=== PATIENT | female | born 1955 | race Caucasian/White ===

== ENCOUNTER 2016-08-07 07:30 | Inpatient (IN) | payer OTHER ==
[2016-07-22 11:31] VITALS: BMI 34.0
--- NOTE | 2016-08-06 16:51 | P.GSHP ---
History of Present Illness H&P Date: 08/06/16 Chief Complaint: Refractory GERD 60 yr old female S/P lap susana and EGD in 01/2016. Final path: Chronic calculous cholecystitis. Small hiatal hernia, H. pylori negative, distal reflux esophagitis. She takes PPI daily for last 15 years.Reflux symptoms not resolved and she presents to discuss about hiatal hernia repair. - Review of Systems Comment: Constitutional: No fever, chills or rigors. No weight loss or loss of appetite. HEENT: No difficulty with hearing, vision and swallowing. Lymphatic: No axillary, inguinal and cervical swellings. Endocrine: No thyroid disorders. Denies history of diabetes. Respiratory: No chest pain, shortness of breath, and cough. No hemoptysis. Cardiovascular: No palpitations, irregular HR Gastrointestinal: No change in bowel habits. No nausea or vomiting. Genitourinary: No increase in urinary frequency or urgency. No hematuria. Musculoskeletal: No back pain, joint stiffness or pain. Neurologic: No history of seizure disorder and headaches. Psychiatric: Denies depression . Has anxiety . No suicidal ideation. Hematologic: Denies any abnormal mucosal bleeding or easy bruising. Past Medical History Past Medical History: GERD/Reflux, Skin Disorder Additional Past Medical History / Comment(s): SEASONAL ALLERGIES, ECZEMA TO FACE AND ARMS OCCASIONALLY,VARICOSE VEINS,STEROID USE JUL 2016. History of Any Multi-Drug Resistant Organisms: None Reported Past Surgical History: Cholecystectomy, Tubal Ligation Additional Past Surgical History / Comment(s): COLONOSCOPY Past Anesthesia/Blood Transfusion Reactions: No Reported Reaction, Motion Sickness Additional Past Anesthesia/Blood Transfusion Reaction / Comment(s): NO HX BLOOD TRANSFUSION. Past Psychological History: Anxiety Smoking Status: Former smoker Past Alcohol Use History: Occasional Additional Past Alcohol Use History / Comment(s): QUIT SMOKING , SMOKED APPROX 10 YRS 1PPD Past Drug Use History: None Reported - Past Family History Mother Additional Family Medical History / Comment(s): ALHEIMER'S Father Additional Family Medical History / Comment(s): DAD HAD TRIPLE HEART BYPASS Medications and Allergies Home Medications Medication Instructions Recorded Confirmed Type Omeprazole [PriLOSEC] 20 mg PO AC-BRKFST 12/12/14 07/22/16 History ALPRAZolam [Xanax] 0.25 mg PO Q8H PRN 07/22/16 07/22/16 History Cetirizine HCl [Zyrtec] 10 mg PO DAILY 07/22/16 07/22/16 History Allergies Allergy/AdvReac Type Severity Reaction Status Date / Time No Known Allergies Allergy Verified 07/22/16 11:21 Surgical - Exam Patient is a 60-year-old female. Constitutional: General Appearance: healthy-appearing, well-nourished, and well- developed. Level of Distress: NAD. Ambulation: ambulating normally. Psychiatric: Insight: good judgement. Orientation: to time, place, and person. Head: Head: normocephalic and atraumatic. Eyes: Lids and Conjunctivae: no discharge or pallor and non-injected. Sclerae: non-icteric. ENMT: Oropharynx: moist mucous membranes. Abdomen: Bowel Sounds: normal. Inspection and Palpation: no tenderness or guarding and soft and non-distended. Musculoskeletal:: Motor Strength and Tone: normal and normal tone. Joints, Bones , and Muscles: normal movement of all extremities. Extremities: no cyanosis or edema. Neurologic: Gait and Station: normal gait and station. Cranial Nerves: grossly intact. Assessment and Plan (1) Hiatal hernia with GERD Status: Acute (2) Hiatal hernia with gastroesophageal reflux disease and esophagitis Status: Acute Plan: 1. Hiatal hernia and refractory GERD 2. Obesity BMI 39.9 3. Informed consent obtained from the patient after explaining the risks, benefits and potential complications including bleeding, infection, pneumothorax , dysphagia, vagus nerve injury and she elected to undergo robotic/laparoscopic hiatal hernia repair with possible mesh and Yogi fundoplication with intraoperative EGD. 4. Bariatric preop two-week diet prior to surgey 5. Postoperative course explained including diet restriction and postop diet plan. No heavy lifting more than 10 pounds for 6 weeks post surgery 1. Gastro-esophageal reflux disease with esophagitis K21.0: Gastro-esophageal reflux disease with esophagitis 2. Body mass index 30+ - obesity Z68.39: Body mass index (BMI) 39.0-39.9, adult 3. Generalized anxiety disorder F41.1: Generalized anxiety disorder
[~2016-08-07 07:30] MED LIST: CHLORHEXIDINE GLUCONATE 15 ML CUP MUCOUS MEM ONE; DEXAMETHASONE SOD PHOSPHATE 10 MG/ML 1 ML VIAL IV ONE; HEPARIN SODIUM,PORCINE 5,000 UNIT/ML 1 ML VIAL SQ ONE; HYDROmorphone 1 MG/ML 1 ML SYRINGE IVP PRN; MIDAZOLAM 2 MG/2 ML VIAL IV PRN; ONDANSETRON 4 MG/2 ML VIAL IVP ONE; SCOPOLAMINE 1.5MG/72HR PATCH TRANSDERM ONE
[2016-08-07] MEDS ORDERED: LIDOCAINE 1% 20 ML VIAL (10MG/ML) FOR IV START INTRADERMA ONE (09:21)
[2016-08-07] MEDS: LACTATED RINGERS 1,000 ML IV SCH ×2 (09:23→09:36)
[2016-08-07 09:26] LABS: Glucose,Whole Blood 79 mg/dL (75-99)
[2016-08-07 09:53] LABS: Basophils % (A) 1 %; CH 31.4; CHCM 33.2; Eosinophils # (A) 0.1 k/uL (0-0.7); Eosinophils % (A) 2 %; HCT 46.8 % (34.0-46.0); HDW 2.36; Luc # (Auto) 0.11; Luc % (Auto) 2; Lymphocytes # (A) 1.5 k/uL (1.0-4.8); Lymphocytes % (A) 29 %; MCH 30.4 pg (25.0-35.0); MCV 95.1 fL (80.0-100.0); Mean Platelet Volume 8.1; Monocytes # (A) 0.4 k/uL (0-1.0); Monocytes % (A) 8 %; Neutrophils # (A) 3.2 k/uL (1.3-7.7); Neutrophils % (A) 59 %; RBC 4.92 m/uL (3.80-5.40); RDW 13.1 % (11.5-15.5); WBC 5.4 k/uL (3.8-10.6); WBC (Perox) 5.32
[2016-08-07] MEDS ORDERED: HEPARIN SODIUM,PORCINE 5,000 UNIT/ML 1 ML VIAL SQ ONE (10:00)
[2016-08-07] MEDS ORDERED: PANTOPRAZOLE 40 MG/10 ML VIAL IV ONE (10:00)
[2016-08-07] MEDS ORDERED: SUCCINYLCHOLINE CHLORIDE 100 MG/5 ML SYR IV ONE (10:27)
[2016-08-07] MEDS ORDERED: AMPICILLIN-SULBACTAM 3 GM VIAL ONE (10:27)
[2016-08-07] MEDS ORDERED: LACTATED RINGERS 1,000 ML BAG IV ONE (10:27)
[2016-08-07] MEDS ORDERED: GLYCOPYRROLATE 0.2 MG/ML 2 ML VIAL ONE (10:27)
[2016-08-07] MEDS ORDERED: SODIUM CHLORIDE 0.9% 100 ML BAG ONE (10:27)
[2016-08-07] MEDS ORDERED: HYDROmorphone (PF) 1 MG/ML ONE (10:27)
[2016-08-07] MEDS ORDERED: PHENYLEPHRINE-0.9% NACL SYG 1 MG/10 ML SYRINGE ONE (10:27)
[2016-08-07] MEDS ORDERED: MIDAZOLAM 2 MG/2 ML VIAL ONE (10:27)
[2016-08-07] MEDS ORDERED: PROPOFOL 10 MG/ML 20 ML VIAL IV ONE (10:27)
[2016-08-07] MEDS ORDERED: ROCURONIUM BROMIDE 10 MG/ML 10 ML VIAL IV ONE (10:27)
[2016-08-07] MEDS ORDERED: fentaNYL (PF) 50 MCG/ML 2 ML AMP ONE (10:27)
[2016-08-07] MEDS ORDERED: NEOSTIGMINE 1 MG/ML 10 ML VIAL ONE (10:27)
[2016-08-07] MEDS: AMPICILLIN-SULBACTAM 3 GM in SODIUM CHLORIDE 0.9% 100 ML IVPB ONE ×2 (11:02→18:33)
[2016-08-07] MEDS ORDERED: BUPIVACAIN-EPI 0.25%-1:200,000 30 ML VIAL SQ ONE (12:04)
[2016-08-07] MEDS: LACTATED RINGERS 1,000 ML IV ONE (13:58)
[2016-08-07] MEDS ORDERED: HYOSCYAMINE ORAL DROPS 1.875 MG/15 ML BOTTLE PO PRN (15:04)
[2016-08-07] MEDS ORDERED: NALOXONE 0.4 MG/ML 1 ML VIAL IV PRN (15:04)
[2016-08-07] MEDS ORDERED: diphenhydrAMINE 50 MG/ML 1 ML VIAL IVP PRN (15:04)
[2016-08-07] MEDS ORDERED: ONDANSETRON 4 MG/2 ML VIAL IVP PRN (15:04)
--- NOTE | 2016-08-07 15:12 | P.OP ---
Date of Procedure: 08/07/16 Preoperative Diagnosis: Hiatal hernia Refractory gastroesophageal reflux disease Obesity BMI 34 Postoperative Diagnosis: Same Procedure(s) Performed: Robotic-assisted laparoscopic Yogi fundoplication and hiatal hernia repair with mesh Implants: Veitas mesh 6x8 cm (biological mesh) Anesthesia: THEO, local Surgeon: Nelia Mata Estimated Blood Loss (ml): 20 IV fluids (ml): 1,200 Urine output (ml): 200 Pathology: none sent Condition: other (ASA 3) Disposition: PACU Indications for Procedure: 60 years old female presents with refractory gastroesophageal reflux disease. EGD showed hiatal hernia and distal esophagitis. Informed consent obtained. She elected to undergo robotic-assisted laparoscopic hiatal hernia repair with possible mesh and Yogi fundoplication. The risks, benefits and potential complications including bleeding, infection, inadvertent pneumothorax were discussed with the patient and she elected to undergo the procedure. Operative Findings: 6 cm hiatal hernia defect which was closed primarily and reinforced with 6 x 8 cm Veritas mesh 360 Yogi fundoplication over 54-[place] Bougie Description of Procedure: The patient was brought to the operating room and placed in supine position. General anesthesia with endotracheal intubation was performed as per anesthesia team. A Rogers catheter was inserted under sterile aseptic precautions. 2 secure straps were placed. The abdomen was prepped and draped using ChloraPrep and sterile dressings were applied followed by an Ioban dressing. A 5 mm skin incision was made in left anterior axillary line and a Veress needle was inserted. Proper position was confirmed by aspiration and saline meniscus test. Pneumoperitoneum was insufflated to a pressure of 15 mm of Hg. Using 5 mm 30 laparoscope, the peritoneal cavity was entered under direct vision using the Optiview technique. A 12 mm trocar was placed in the supraumbilical location, another 12 mm in the right lower quadrant for the bacteriology research assistant port. The robotic 8 mm trocar was placed in the right upper quadrant into 8 mm trochars were placed in the left upper quadrant The patient was placed in reverse Trendelenburg position. A vaibhav flex liver retractor was introduced in the 5mm epigastric port to elevate the left lobe of the liver and expose the hiatus. The da Trini robot was appropriately docked. Patient was placed in reverse Trendelenburg. 30 down camera was used for visualization. Hiatal/paraesophageal hernia was noted with 20% of the stomach in the thoracic cavity. The lesser omentum was opened with vessel sealer. The incision was extended over the hiatus to the left of the elio. The right elio was identified and cleared of its investing tissue, and the dissection was then carried over the arch of the crura. The left elio was similarly dissected and the phrenoesophageal ligament divided. The vagus nerves were identified and protected. The esophagus was gently elevated with a closed grasper and the dissection progressed underneath the esophagus until it was fully mobilized. The hernia sac extended up to the chest and was fully mobilized and resected. The gastroepiploic vessels were ligated along the greater curvature of stomach. Care was taken not to injure spleen while dividing the short gastric vessels with Vessel sealer device. The stomach was completely mobilized and adequate length was obtained in the esophagus allowing at least 3 cm of intra abdominal esophagus. The hernia defect measures 5 x 5 cm. 3 figure of 8 sutures of 2-0 Ethibond were placed to close the hiatal defect posteriorly without causing undue narrowing of the esophagus. A Veritas 6 x 8 cm mesh was cut in Keyhole fashion. The mesh was positioned on the esophagus with both limbs on either side of the esophagus but without enroaching it. The mesh was secured to the diaphragm using 2-0 Ethibond. A 54-[place] bougie was passed per orally into the esophagus and the stomach by TRAVELING FREIGHT AGENT An angled grasper was passed behind the esophagus and the fundus grasped and pulled behind the esophagus. It passed easily and was easily approximated without tension to the remaining fundus, creating a 360 floppy wrap around the distal esophagus. The wrap was sutured to itself with 3 interrupted sutures of 2-0 Ethibond. The top most suture included a partial thickness bite of the esophagus to anchor the wrap. The liver retractor was removed. The 12 mm trocar sites were closed with two transfascial sutures of 0 Vicryl. Pneumoperitoneum was evacuated and all trocar sites were examined. No evidence of bleeding. The skin incision were closed with 4-0 Monocryl followed by Dermabond skin glue. Sponge, instrument and needle count were correct x 2. Patient tolerated the procedure well and was taken to post anesthesia care unit in stable condition
[2016-08-07] MEDS: HYDROmorphone 1 MG/ML 1 ML SYRINGE IVP PRN ×2 (16:56→22:18)
[2016-08-07] MEDS: ALBUTEROL NEBULIZED 2.5 MG/3 ML INHALATION SCH ×2 (17:17→20:46)
[2016-08-07] MEDS: 0.9% NACL WITH KCL 20 MEQ/L 1,000 ML IV SCH (17:21)
[2016-08-07] MEDS: KETOROLAC 30 MG/ML 1 ML VIAL IVP SCH (18:34)
[2016-08-08] MEDS: LACTATED RINGERS 1,000 ML IV ONE (00:57)
[2016-08-08] MEDS: 0.9% NACL WITH KCL 20 MEQ/L 1,000 ML IV SCH ×3 (01:08→16:44)
[2016-08-08] MEDS: HYDROmorphone 1 MG/ML 1 ML SYRINGE IVP PRN ×2 (03:46→11:14)
[2016-08-08] MEDS: KETOROLAC 30 MG/ML 1 ML VIAL IVP SCH ×4 (04:14→19:03)
[2016-08-08 06:54] LABS: Basophils # (A) 0.1 k/uL (0-0.2); Basophils % (A) 1 %; CH 31.3; CHCM 32.3; Eosinophils % (A) 0 %; HCT 41.3 % (34.0-46.0); HDW 2.36; HGB 12.6 gm/dL (11.4-16.0); Luc % (Auto) 1; Lymphocytes # (A) 0.9 k/uL (1.0-4.8); Lymphocytes % (A) 9 %; MCH 29.7 pg (25.0-35.0); MCHC 30.5 g/dL (31.0-37.0); MCV 97.4 fL (80.0-100.0); Mean Platelet Volume 7.6; Monocytes # (A) 0.7 k/uL (0-1.0); Monocytes % (A) 7 %; Neutrophils # (A) 8.3 k/uL (1.3-7.7); Neutrophils % (A) 83 %; RBC 4.23 m/uL (3.80-5.40); RDW 13.1 % (11.5-15.5); WBC 10.1 k/uL (3.8-10.6); WBC (Perox) 10.09
[2016-08-08 07:05] LABS: Anion Gap 9 mmol/L; Blood Urea Nitrogen 9 mg/dL (7-17); Calcium 9.1 mg/dL (8.4-10.2); Carbon Dioxide 24 mmol/L (22-30); Chloride 110 mmol/L (98-107); Magnesium 1.9 mg/dL (1.6-2.3); Non-African American GFR(MDRD) >60 (>60 ml/min/1.73 sqM); Phosphorous 3.6 mg/dL (2.5-4.5); Potassium 4.4 mmol/L (3.5-5.1); Sodium 143 mmol/L (137-145)
[2016-08-08] MEDS: ALBUTEROL NEBULIZED 2.5 MG/3 ML INHALATION SCH ×4 (08:57→21:03)
--- NOTE | 2016-08-08 10:37 | FL ---
EXAMINATION TYPE: FL UGI DATE OF EXAM: 08/08/2016 10:29 AM LIMITED UGI-ESOPHAGRAM: CLINICAL HISTORY: Hiatal hernia and reflux symptoms, Tesfaye fundoplication surgery performed one day earlier TECHNIQUE: Limited esophagram is performed utilizing 30 oz of Omnipaque 350. A total of approximatel y 45 seconds of fluoroscopic time was utilized during procedure. FINDINGS: The patient swallowed contrast without difficulty or delay. Esophageal peristalsis and mo tility are within normal limits. There is mild delay in flow of contrast along the diaphragmatic hiat us into the stomach, there is no evidence of contrast extravasation to suggest leak. Patient remains asymptomatic. No persistent hiatal hernia is seen. Cholecystectomy clips are noted. IMPRESSION: No evidence of leak or significant obstruction status post Tesfaye fundoplication surgery yesterday.
[2016-08-08] MEDS ORDERED: HYDROcodone/APAP 15 ML SOLUTION PO PRN (11:18)
[2016-08-08] MEDS: ALPRAZolam 0.25 MG TAB PO SCH (13:00)
[2016-08-08] MEDS: PANTOPRAZOLE 40 MG/10 ML VIAL IV SCH (13:01)
[2016-08-08] MEDS: HYDROcodone/APAP 15 ML SOLUTION PO PRN ×2 (13:34→22:02)
[2016-08-08] MEDS ORDERED: ACETAMINOPHEN ORAL SUSP 160 MG/5 ML CUP PO PRN (13:57)
--- NOTE | 2016-08-08 14:13 | P.PN ---
Subjective Principal diagnosis: S/p Hiatal hernia repair Patient is postop day 1 status post hiatal hernia repair with Yogi fundoplication. Patient complaining of a severe headache which is possibly from caffeine withdrawal. There is some burping. No true nausea. She has passed some flatus not had a bowel movement abdominal pain is well-controlled with the pain medication. Primary concern has been the headache. She already had her upper GI which has been unremarkable. She is tolerating some liquids which are going down easily in and not getting stuck. Objective - Vital Signs Vital signs: Vital Signs Temp 97 F L 08/08/16 08:20 Pulse 69 08/08/16 08:20 Resp 20 08/08/16 08:20 BP 127/69 08/08/16 08:20 Pulse Ox 92 L 08/08/16 08:20 Intake & Output 08/07/16 08/08/16 08/08/16 18:59 06:59 18:59 Intake Total 2800 240 Output Total 220 420 Balance 2580 -180 Weight 89.811 kg 89.811 kg Intake: IV 2800 Oral 240 Output: Urine 200 420 Estimated Blood Loss 20 Other: # Voids 1 - Constitutional General appearance: Present: mild distress - EENT Eyes: Present: PERRLA - Cardiovascular Rhythm: regular - Gastrointestinal Gastrointestinal Comment(s): Incisions are clean and dry. There are no sign of active infection. They're appropriately tender. General gastrointestinal: Present: soft - Labs CBC & Chem 7: 08/08/16 06:37 08/08/16 06:37 Labs: Abnormal Lab Results - Last 24 Hours (Table) 08/08/16 08/08/16 Range/Units 06:37 06:37 MCHC 30.5 L (31.0-37.0) g/dL Neutrophils # 8.3 H (1.3-7.7) k/uL Lymphocytes # 0.9 L (1.0-4.8) k/uL Chloride 110 H (98-107) mmol/L Assessment and Plan (1) Hiatal hernia with GERD Narrative/Plan: Patient is a 60-year-old lady postop day 1 with hiatal hernia repair and fundoplication. She is tolerating liquids. Her study looks fine. She may be advanced according to the Yogi diet. At this point I will prescribe liquid Tylenol to help with the headache.. She may have black coffee. Status: Acute
[2016-08-08] MEDS: SIMETHICONE 40 MG/0.6 ML DROPS 2,000 MG/30 ML BOTTLE PO PRN (18:00)
[2016-08-09] MEDS: 0.9% NACL WITH KCL 20 MEQ/L 1,000 ML IV SCH ×2 (00:27→08:04)
[2016-08-09] MEDS: KETOROLAC 30 MG/ML 1 ML VIAL IVP SCH ×3 (00:28→12:26)
[2016-08-09] MEDS ORDERED: BISACODYL 5 MG TABLET.DR PO PRN (08:00)
[2016-08-09] MEDS: ALBUTEROL NEBULIZED 2.5 MG/3 ML INHALATION SCH ×4 (09:11→20:28)
[2016-08-09] MEDS: PANTOPRAZOLE 40 MG/10 ML VIAL IV SCH (09:43)
[2016-08-09] MEDS: ALPRAZolam 0.25 MG TAB PO SCH ×3 (10:11→21:17)
--- NOTE | 2016-08-09 10:53 | XR ---
EXAMINATION TYPE: XR chest 2V DATE OF EXAM: 08/09/2016 10:46 AM COMPARISON: NONE HISTORY: Shortness of breath after Tesfaye fundoplication surgery 2 days ago. TECHNIQUE: Frontal and lateral views of the chest are obtained. FINDINGS: There are small to moderate size bilateral pleural effusions and associated bibasilar atel ectasis and/or infiltrate. Upper lungs are clear without pneumothorax. The cardiac silhouette size is mildly enlarged. The osseous structures are intact. There is contrast material seen in colon from recent Limited upper GI study. Scattered air-fluid levels are present. Cholecystectomy clips are note d. IMPRESSION: Consider CHF exacerbation as there is mild cardiomegaly with suspected small to moderate -sized bilateral pleural effusions. Clinical correlation advised. Suspect postoperative or postproced ural ileus in the visualized abdomen.
[2016-08-09] MEDS ORDERED: RX INFO: IV CONTRAST WAS GIVEN 1 EACH MISC MISCELLANE PRN (11:08)
[2016-08-09 11:26] LABS: Basophils % (A) 0 %; CH 30.9; CHCM 32.2; Eosinophils % (A) 0 %; HCT 41.7 % (34.0-46.0); HDW 2.31; HGB 13.3 gm/dL (11.4-16.0); Luc # (Auto) 0.11; Luc % (Auto) 1; Lymphocytes # (A) 1.3 k/uL (1.0-4.8); Lymphocytes % (A) 14 %; MCH 30.8 pg (25.0-35.0); MCHC 31.9 g/dL (31.0-37.0); MCV 96.5 fL (80.0-100.0); Monocytes # (A) 0.4 k/uL (0-1.0); Monocytes % (A) 5 %; Neutrophils # (A) 6.8 k/uL (1.3-7.7); Neutrophils % (A) 79 %; RBC 4.32 m/uL (3.80-5.40); RDW 13.5 % (11.5-15.5); WBC 8.7 k/uL (3.8-10.6); WBC (Perox) 9.23
--- NOTE | 2016-08-09 11:38 | US ---
EXAMINATION TYPE: US venous doppler duplex LE BI DATE OF EXAM: 08/09/2016 11:10 AM COMPARISON: NONE CLINICAL HISTORY: chest pressure per patient; day 3 post Hiatal Hernia repair. SIDE PERFORMED: Bilateral VESSELS IMAGED: Common Femoral Vein Deep Femoral Vein Greater Saphenous Vein * Femoral Vein Popliteal Vein Proximal Calf Veins (* superficial vessels) TECHNOLOGIST IMPRESSION: Right Leg: Negative for DVT Left Leg: Negative for DVT Satisfactory color flow, phasicity, and compressibility is documented bilaterally at the above levels . IMPRESSION: No ultrasound evidence for acute DVT in either lower extremity.
[2016-08-09 11:40] LABS: ALT 166 U/L (9-52); AST 70 U/L (14-36); Alkaline Phosphatase 81 U/L (38-126); Anion Gap 9 mmol/L; Blood Urea Nitrogen 8 mg/dL (7-17); Calcium 9.4 mg/dL (8.4-10.2); Carbon Dioxide 24 mmol/L (22-30); Chloride 109 mmol/L (98-107); Glucose 109 mg/dL (74-99); Non-African American GFR(MDRD) >60 (>60 ml/min/1.73 sqM); Potassium 4.5 mmol/L (3.5-5.1); Sodium 142 mmol/L (137-145); Total Bilirubin 0.4 mg/dL (0.2-1.3)
--- NOTE | 2016-08-09 11:42 | P.PN ---
Subjective Principal diagnosis: S/p Hiatal hernia repair Patient is postop day 2 status post hiatal hernia repair with Yogi fundoplication. Patient currently can't radiology portion of her workup for her shortness of breath. Objective - Vital Signs Vital signs: Vital Signs Temp 97.3 F L 08/09/16 08:09 Pulse 78 08/09/16 10:21 Resp 20 08/09/16 08:09 BP 155/78 08/09/16 08:09 Pulse Ox 92 L 08/09/16 10:13 Intake & Output 08/08/16 08/09/16 08/09/16 18:59 06:59 18:59 Intake Total 100 150 60 Output Total 550 200 Balance 100 -400 -140 Weight 89.811 kg Intake: Oral 100 150 60 Output: Urine 550 200 Other: Voiding Method Toilet # Voids 2 - Labs CBC & Chem 7: 08/09/16 10:29 08/08/16 06:37 Labs: Abnormal Lab Results - Last 24 Hours (Table) 08/09/16 Range/Units 10:29 D-Dimer 2.16 H (<0.60) mg/L FEU Assessment and Plan (1) Hiatal hernia with GERD Narrative/Plan: Patient was not examined the patient was away. I was reported by the nurse that she was requiring nasal cannula nasal Reduction with shortness of breath walking up to the toilet falling down into the 80s. I have started her off on Lovenox preliminary results in terms of DVT study was negative for bilateral lower extremity DVT. Erin shows pleural effusion CT angios the chest has been ordered to rule out pulmonary embolism. Pulmonology is also been consulted due to her shortness of breath. Further recommendations to follow once the patient returns and is evaluated on the floor and the results are available for the studies. Status: Acute
[2016-08-09] MEDS: ENOXAPARIN 40 MG/0.4 ML SYRINGE SQ SCH (11:52)
--- NOTE | 2016-08-09 12:08 | CT ---
EXAMINATION TYPE: CT chest angio for PE DATE OF EXAM: 08/09/2016 11:50 AM COMPARISON: Chest x-ray from earlier today HISTORY: SOB, hx of hiatal hernia with surgery [address] DLP: 348.4 mGycm Automated exposure control for dose reduction was used. CONTRAST: CTA Chest for pulmonary embolism performed with with IV Contrast, patient injected with 100mL, wasted 42mL mL of Omnipaque 350. MIP images are created on CT scanner and reviewed. FINDINGS: LUNGS: Exam is suboptimal as is degraded by respiratory motion artifact. Small bilateral pleural effu sions are confirmed. There is associated bibasilar atelectasis and/or consolidation, former is favore d. No pneumothorax is seen bilaterally. Tracheobronchial tree is patent. MEDIASTINUM: There is satisfactory enhancement of the pulmonary artery and its branches, there is no CT evidence for pulmonary embolism. There are no greater than 1 cm hilar or mediastinal lymph nodes. There is small pericardial effusion seen.Heart size is mildly enlarged. Coronary artery calcificatio n is present. Small amount of pneumomediastinum remains present. OTHER: Cholecystectomy clips are noted. Contrast from recent upper GI causes streak artifact in the abdomen. Tiny amount of pneumoperitoneum is still present. Subcutaneous air anterior abdominal wall i s noted. Additional subcutaneous emphysema is seen supraclavicular level anterior upper chest. All ai r is presumed postsurgical given patient history of surgery 2 days earlier. Some multilevel spurring in the spine is present. Exaggerated thoracic kyphosis is noted. No persistent hiatal hernia is seen. There is suggestion of abnormal outpouching or diverticulum from the posterior gastric wall just bel ow diaphragm. IMPRESSION: 1. No CT evidence for pulmonary embolism. 2. Consider CHF exacerbation as there is cardiomegaly with small bilateral pleural effusions. Clinica l correlation advised.
[2016-08-09] MEDS ORDERED: FUROSEMIDE 10 MG/ML 2 ML VIAL IV ONE (12:21)
--- NOTE | 2016-08-09 12:29 | P.PN ---
Subjective Principal diagnosis: S/P robotic lap Yogi POD#2 S/P robotoc assist lap Yogi fundoplication. Poor oral intake secondary to headaches , now resolved. Poor IS use <500 cc. Shortness of breath. CBC, CMP, troponin normal. Elevated AST, ALt from liver retraction- normal expected Vitals stable. Diminished basal lung sounds. CXR- B/L plural effusion , atelectasis CT chest- No PE, atelectasis, small bilateral pleural effusion Elevated D dimer - expected post op change Patient reassured. Abdominal binder. Aggressive IS use. Xanax for anxiety. Lasix 20 mg IVX1. Increase oral intake- Clear liquids. Small sips . D/W Dr. Beckwith and Dr. Monsalve . Objective - Vital Signs Vital signs: Vital Signs Temp 97.3 F L 08/09/16 08:09 Pulse 80 08/09/16 12:00 Resp 20 08/09/16 12:00 BP 155/78 08/09/16 08:09 Pulse Ox 94 L 08/09/16 12:00 Intake & Output 08/08/16 08/09/16 08/09/16 18:59 06:59 18:59 Intake Total 100 150 60 Output Total 550 200 Balance 100 -400 -140 Weight 89.811 kg Intake: Oral 100 150 60 Output: Urine 550 200 Other: Voiding Method Toilet # Voids 2 - Labs CBC & Chem 7: 08/09/16 10:29 08/09/16 10:29 Labs: Abnormal Lab Results - Last 24 Hours (Table) 08/09/16 08/09/16 Range/Units 10:29 10:29 D-Dimer 2.16 H (<0.60) mg/L FEU Chloride 109 H (98-107) mmol/L Glucose 109 H (74-99) mg/dL AST 70 H (14-36) U/L ALT 166 H (9-52) U/L Total Protein 6.0 L (6.3-8.2) g/dL Assessment and Plan (1) Hiatal hernia with GERD Status: Acute (2) Hiatal hernia with gastroesophageal reflux disease and esophagitis Status: Acute
--- NOTE | 2016-08-09 13:36 | P.CNPUL ---
History of Present Illness Consult date: 08/09/16 Reason for consult: dyspnea, hypoxemia, abnormal CXR/CT Chief complaint: Shortness of breath worse on exertion History of present illness: This is a 60-year-old female patient who had a laparoscopic Yogi fundoplication performed on Wednesday of this past week. He was done by Dr. khan. The patient did well Wednesday afternoon and evening and on Wednesday. More recently she's been complaining of increasing shortness of breath worse with exertion. She does have a cough. Nonproductive. No fever no chills. She was chest x-ray which suggested heart failure. Computed tomography scan of the chest was done to rule out PE. PE was ruled out. Additional evidence of what appears to be some mild fluid overload with bilateral pleural effusions. The patient has no prior history of any lung issues or cardiac issues. She does have a history of hiatal hernia. She has taken a proton pump inhibitor for a number of years. Her other medical history is unremarkable other than for [place] mild ALLERGIES. Surgical history includes tubal ligation and cholecystectomy. Did smoke in the past for about 20 or so years but quit many years back. Review of Systems A 12 point review of system is positive for shortness of breath worse on exertion and a nonproductive cough. She also had an episode of chest pain right in the center of her chest. No history of cardiac disease. S1 necessary this necessitated the computed tomography scan Past Medical History Past Medical History: GERD/Reflux, Skin Disorder Additional Past Medical History / Comment(s): SEASONAL ALLERGIES, ECZEMA TO FACE AND ARMS OCCASIONALLY,VARICOSE VEINS,STEROID USE JUL 2016. History of Any Multi-Drug Resistant Organisms: None Reported Past Surgical History: Cholecystectomy, Tubal Ligation Additional Past Surgical History / Comment(s): COLONOSCOPY Past Anesthesia/Blood Transfusion Reactions: No Reported Reaction, Motion Sickness Additional Past Anesthesia/Blood Transfusion Reaction / Comment(s): NO HX BLOOD TRANSFUSION. Past Psychological History: Anxiety Smoking Status: Former smoker Past Alcohol Use History: Occasional Additional Past Alcohol Use History / Comment(s): QUIT SMOKING , SMOKED APPROX 10 YRS 1PPD Past Drug Use History: None Reported - Past Family History Mother Additional Family Medical History / Comment(s): ALHEIMER'S Father Additional Family Medical History / Comment(s): DAD HAD TRIPLE HEART BYPASS Medications and Allergies Home Medications Medication Instructions Recorded Confirmed Type Omeprazole [PriLOSEC] 20 mg PO AC-BRKFST 12/12/14 08/07/16 History ALPRAZolam [Xanax] 0.25 mg PO Q8H PRN 07/22/16 08/07/16 History Cetirizine HCl [Zyrtec] 10 mg PO DAILY 07/22/16 08/07/16 History Allergies Allergy/AdvReac Type Severity Reaction Status Date / Time dog dander AdvReac Rash/Hives Verified 08/08/16 06:35 grass pollen AdvReac Rash/Hives Verified 08/08/16 06:35 Physical Exam Osteopathic Statement: *. No significant issues noted on an osteopathic structural exam other than those noted in the History and Physical/Consult. Vitals: Vital Signs Temp Pulse Pulse Resp BP Pulse Ox 08/09/16 12:00 80 20 94 L 08/09/16 10:21 78 08/09/16 10:13 92 L 08/09/16 10:10 76 08/09/16 08:09 97.3 F L 76 20 155/78 94 L 08/09/16 05:00 97.1 F L 66 20 142/71 92 L 08/09/16 00:55 97.6 F 74 24 156/72 91 L 08/09/16 00:00 20 08/08/16 21:35 97.8 F 67 20 144/60 08/08/16 20:00 20 08/08/16 16:45 97.3 F L 93 19 138/70 93 L 08/08/16 16:00 19 08/08/16 15:04 94 L Intake and Output 08/08/16 08/09/16 08/09/16 22:59 06:59 14:59 Intake Total 50 100 60 Output Total 200 350 475 Balance -150 -250 -415 Intake: Oral 50 100 60 Output: Urine 200 350 475 Other: Voiding Method Toilet No acute distress, oriented 3. HEENT examination is grossly unremarkable. Mucous membranes are moist. There are no oral lesions. Neck supple. Full range of motion. No adenopathy. Cardiovascular examination reveals regular rhythm rate. S1-S2 normal. No S3- S4 or murmur. Lungs reveal diminished breath sounds particularly at the bases. Some crackles at the bases. Some dullness at the bases. No rhonchi. Abdomen soft bowel sounds are heard. Extremities are intact. There is no edema. Results - Laboratory Findings CBC and BMP: 08/09/16 10:29 08/09/16 10:29 PT/INR, D-dimer D-Dimer 2.16 mg/L FEU (<0.60) H 08/09/16 10:29 Abnormal lab findings: Abnormal Labs 08/07/16 08/08/16 08/08/16 09:26 06:37 06:37 Hct 46.8 H MCHC 30.5 L Neutrophils # 8.3 H Lymphocytes # 0.9 L D-Dimer Chloride 110 H Glucose AST ALT Total Protein 08/09/16 08/09/16 10:29 10:29 Hct MCHC Neutrophils # Lymphocytes # D-Dimer 2.16 H Chloride 109 H Glucose 109 H AST 70 H ALT 166 H Total Protein 6.0 L - Diagnostic Findings Chest x-ray: image reviewed CT scan - chest: image reviewed (Both CAT scan and chest x-ray show evidence of bilateral pleural effusion. The pattern that were sitting is most consistent with fluid overload/heart failure. There is no evidence of pulmonary embolism on the computed tomography scan) Assessment and Plan (1) CHF (congestive heart failure) Status: Acute (2) Pleural effusion in other conditions classified elsewhere Status: Acute (3) Chest pain Status: Acute (4) Hiatal hernia with GERD Status: Acute (5) Hiatal hernia with gastroesophageal reflux disease and esophagitis Status: Acute Plan: Plan for August 2016 I spoke to the surgeon about this patient. I recommended the incentive spirometer every hour while awake. Also read recommended some breathing treatments. In addition, she can get Lasix 40 mg IV push and also I've ordered to be done. Additional recommendations suggestions are forthcoming. Time with Patient: Greater than 30
[2016-08-09] MEDS: SIMETHICONE 40 MG/0.6 ML DROPS 2,000 MG/30 ML BOTTLE PO PRN (14:49)
[2016-08-09] MEDS: HYDROcodone/APAP 15 ML SOLUTION PO PRN (15:18)
[2016-08-10] MEDS: HYDROcodone/APAP 15 ML SOLUTION PO PRN (00:07)
[2016-08-10] MEDS: 0.9% NACL WITH KCL 20 MEQ/L 1,000 ML IV SCH (04:06)
[2016-08-10] MEDS: ENOXAPARIN 40 MG/0.4 ML SYRINGE SQ SCH (08:19)
[2016-08-10] MEDS ORDERED: PANTOPRAZOLE 40 MG TABLET PO SCH (09:00)
[2016-08-10 09:15] VITALS: RESP 20
[2016-08-10] MEDS ORDERED: DEXAMETHASONE SOD PHOSPHATE 10 MG/ML 1 ML VIAL IV STA (09:42)
[2016-08-10] MEDS ORDERED: FUROSEMIDE 10 MG/ML 2 ML VIAL IV ONE (09:44)
[2016-08-10] MEDS: ALBUTEROL NEBULIZED 2.5 MG/3 ML INHALATION SCH ×3 (09:46→16:54)
[2016-08-10] MEDS ORDERED: SIMETHICONE 80 MG CHEWABLE PO PRN (09:52)
--- NOTE | 2016-08-10 10:36 | P.PN ---
Subjective A 60-year-old female being seen this morning sitting up on the edge of the bed. With coaching patient can achieve 1000. This morning the patient is stating feeling of bloating sensation not able to have a bowel movement states is passing gas. On room air the sats this morning are documented 93%. Has remained afebrile. Patient is status post robotic-assist lap Omid fundoplication August [address] Mata. Over the course of hospitalization the patient developed episodes of increased shortness of breath worse with exertion. CAT scan of the chest was done it did rule out for pulmonary emboli. The CAT scan did show evidence of mild fluid overload with bilateral pleural effusion. Patient has been seen by pulmonology service. Objective - Vital Signs Vital signs: Vital Signs Temp 98.5 F 08/10/16 08:05 Pulse 68 08/10/16 08:05 Resp 20 08/10/16 08:05 BP 156/74 08/10/16 08:05 Pulse Ox 93 L 08/10/16 08:05 Intake & Output 08/09/16 08/10/16 08/10/16 18:59 06:59 18:59 Intake Total 620 1000 200 Output Total 1775 Balance -1155 1000 200 Intake: Intake, IV Titration 1000 Amount 0.9% NaCl with KCl 20 Meq 1000 /l 1,000 ml @ 50 mls/hr IV .Q20H TOÑA Rx#: [id number] Oral 620 200 Output: Urine 1775 Other: # Voids 2 1 - Exam Physical exam 60-year-old female sitting up on the edge of the bed clear liquid diet taking with no difficulty. Currently is denying a headache when questioning. And states breathing feels improved. Does report having a bloating sensation Lungs posterior diminished at the bases otherwise adequate air movement. Is able to use the incentive spirometer with coaching can achieve 1000 no cough noted no conversational dyspnea noted Heart S1-S2 audible regular Abdomen surgical site no redness at the site soft nontender a few active bowel tones noted Extremities no evidence of calf tenderness or edema - Labs CBC & Chem 7: 08/09/16 10:29 08/09/16 10:29 Labs: Abnormal Lab Results - Last 24 Hours (Table) 08/09/16 08/09/16 Range/Units 10:29 10:29 D-Dimer 2.16 H (<0.60) mg/L FEU Chloride 109 H (98-107) mmol/L Glucose 109 H (74-99) mg/dL AST 70 H (14-36) U/L ALT 166 H (9-52) U/L Total Protein 6.0 L (6.3-8.2) g/dL Assessment and Plan Plan: Impression Status post robotic assist lap omid fundoplication done 08/07/2015 Elevated d-dimer expected postop change with CAT scan of the chest no evidence of a pulmonary emboli Anxiety disorder nonspecified CAT scan of the chest bilateral pleural effusion atelectasis suspect mild volume overload History of chronic reflux esophagitis hiatal hernia with refractory GERD Obesity BMI 34 Hiatal hernia with gastroesophageal reflux disease with esophagitis acute Plan Check echocardiogram evaluate the LV functionin no acute findings patient could be discharged home if okay with pulmonology Lasix 20 IV 1 Increase activity Increase the use of the incentive spirometer have patient use every 1 hour while awake Pain control Resume home meds as appropriate Encourage clear liquids small sips DVT and GI prophylaxis Repeat labs in the morning Follow-up on pending studies The above dictated assessment and findings were discussed with Dr. Mata Impression and the plan of care have been dictated as directed. Alem Tyler nurse practitioner acting as a scribe for dr mata
--- NOTE | 2016-08-10 11:42 | ECHOF ---
Referral Reason:lv fxn MEASUREMENTS -------- HEIGHT: 162.6 cm WEIGHT: 89.8 kg BP: RVIDd: 2.3 cm (< 3.3) IVSd: 1.0 cm (0.6 - 1.1) LVIDd: 4.2 cm (3.9 - 5.3) LVPWd: 1.0 cm (0.6 - 1.1) IVSs: 1.5 cm LVIDs: 2.3 cm LVPWs: 1.2 cm LA Diam: 3.9 cm (2.7 - 3.8) Ao Diam: 2.8 cm (2.0 - 3.7) AV Cusp: 2.0 cm (1.5 - 2.6) LA Diam: 3.9 cm (2.7 - 3.8) MV EXCURSION: 11.800 mm (> 18.000) MV EF SLOPE: 74 mm/s (70 - 150) EPSS: 0.4 cm MV E Kash: 0.77 m/s MV A Kash: 1.08 m/s MV E/A Ratio: 0.71 RAP: 5.00 mmHg RVSP: 30.57 mmHg FINDINGS -------- Sinus rhythm. This was a technically adequate study. There is mild concentric left ventricular hypertrophy. Overall left ventricular systolic function is normal with, an EF between 55 - 60 %. The right ventricle is normal in size. The left atrial size is normal. The right atrial size is normal. There is mild aortic valve sclerosis. There is no evidence of aortic regurgitation. Mild mitral annular calcification present. Mild mitral regurgitation is present. Mild tricuspid regurgitation present. Right ventricular systolic pressure is normal at < 35 mmHg. There is no evidence of pulmonary hypertension. There is no pulmonic regurgitation present. There is a trivial pericardial effusion present. CONCLUSIONS -------- 1. There is mild concentric left ventricular hypertrophy. 2. Overall left ventricular systolic function is normal with, an EF between 55 - 60 %. 3. There is mild aortic valve sclerosis. 4. Mild mitral annular calcification present. 5. Mild mitral regurgitation is present. 6. Mild tricuspid regurgitation present. 7. Right ventricular systolic pressure is normal at < 35 mmHg. 8. There is no evidence of pulmonary hypertension. 9. There is a trivial pericardial effusion present. DOCUMENT SPECIALIST: Deborah Ayala RDCS
--- NOTE | 2016-08-10 11:51 | P.PN ---
Subjective This is a 60-year-old female patient who had a laparoscopic Omid fundoplication performed on Wednesday of this past week. More recently she's been complaining of increasing shortness of breath worse with exertion. She does have a cough. Nonproductive. No fever no chills. She was chest x-ray which suggested heart failure. Computed tomography scan of the chest was done to rule out PE. PE was ruled out. Additional evidence of what appears to be some mild fluid overload with bilateral pleural effusions. On 08/20/2016, the patient is being seen in follow-up. She is doing well and she has no specific complaints. I reviewed the computed tomography scan of the chest and there is extensive atelectatic changes in the lung bases bilaterally and small bilateral pleural effusions. The patient is using incentive spirometer and the patient has a pulse ox of 93% on room air without any desaturations with activity. Echocardiogram was also done and the results are still pending for now. No nausea. No vomiting. No abdominal pain and she is swallowing well. Objective - Vital Signs Vital signs: Vital Signs Temp 98.5 F 08/10/16 08:05 Pulse 68 08/10/16 08:05 Resp 20 08/10/16 08:05 BP 156/74 08/10/16 08:05 Pulse Ox 93 L 08/10/16 08:05 Intake & Output 08/09/16 08/10/16 08/10/16 18:59 06:59 18:59 Intake Total 620 1000 200 Output Total 1775 400 Balance -1155 1000 -200 Intake: Intake, IV Titration 1000 Amount 0.9% NaCl with KCl 20 Meq 1000 /l 1,000 ml @ 50 mls/hr IV .Q20H TOÑA Rx#: [id number] Oral 620 200 Output: Urine 1775 400 Other: # Voids 2 1 - Exam The patient appeared well nourished and normally developed. Vital signs as documented. Head exam is unremarkable. No scleral icterus or corneal arcus noted. Neck is without jugular venous distension, thyromegaly, or carotid bruits. Carotid upstrokes are brisk bilaterally. Lungs are clear to auscultation and percussion. Lung sounds are diminished in lung bases bilaterally. Cardiac exam reveals the PMI to be normally sized and situated. Rhythm is regular. First and second heart sounds normal. No murmurs, rubs or gallops. Abdominal exam reveals normal bowel sounds, no masses, no organomegaly and no aortic enlargement. Abdominal surgical wounds are all intact and clean. Extremities are nonedematous and both femoral and pedal pulses are normal. - Labs CBC & Chem 7: 08/09/16 10:29 08/09/16 10:29 Labs: Abnormal Lab Results - Last 24 Hours (Table) 08/09/16 Range/Units 10:29 Chloride 109 H (98-107) mmol/L Glucose 109 H (74-99) mg/dL AST 70 H (14-36) U/L ALT 166 H (9-52) U/L Total Protein 6.0 L (6.3-8.2) g/dL Assessment and Plan Plan: Impression 1 Status post robotic assist lap omid fundoplication done 08/07/2015 2 Elevated d-dimer expected postop change with CAT scan of the chest no evidence of a pulmonary emboli 3 Anxiety disorder nonspecified 4 CAT scan of the chest bilateral pleural effusion atelectasis suspect mild volume overload 5 History of chronic reflux esophagitis 6 hiatal hernia with refractory GERD 7 Obesity BMI 34 8 Hiatal hernia with gastroesophageal reflux disease with esophagitis acute Plan This patient is doing well. Her postoperative hypoxemia is most likely related to atelectatic changes in lung bases bilaterally. I'm going to ask the patient to continue using her incentive spirometer aggressively. She ambulated approximately 200 feet today and she was able to maintain a pulse ox above 90%. As such, she does not need oxygen to go home. Be awaiting the results of the echocardiogram. If all normal, she can be discharged home today and she'll be given my information to contact me should there be any breathing issues postop.
[2016-08-10 11:53] VITALS: PULSE 86
[2016-08-10 12:03] VITALS: BP 139/75; TEMP 97.4
--- NOTE | 2016-08-10 13:38 | P.DS ---
Providers Date of admission: 08/07/16 08:54 Expected date of discharge: 08/10/16 Attending physician: Nelia Alcantara Consults: 08/09/16 11:08 Consult Physician Urgent Consulting Provider: Farhad Beckwith Consult Reason/Comments: shortness of breath Do you want consulting provider notified?: Yes Primary care physician: [facility] Course: Patient is status post robotic-assist lap Yogi fundoplication done on August [address] Alcantara. Over the course of hospitalization the patient developed episodes of increased shortness of breath worse with exertion. CAT scan of the chest was done it did rule out for pulmonary emboli. The CAT scan did show evidence of mild fluid overload with bilateral pleural effusion. Patient has been seen by pulmonology service. echocardiogram was ordered results were reviewed. Overall the left ventricular systolic function was normal EF between 55 and 60%. There was no evidence of pulmonary hypertension. there was a trivial pericardial effusion present. Mild concentric left ventricular hypertrophy . Patient was noted to be up ambulating in the medeiros stated passing gas reportedly not experiencing any abdominal pain no nausea vomiting and tolerating diet as prescribed sips of liquid pulmonology indicated the patient was appropriate proceed with a discharge home. patient's pulse ox sat on room air was 93% with activity did not have any desaturations noted. Patient was felt to be hemodynamically stable and appropriate proceed with a discharge to home Impression discharge diagnosis 1 Status post robotic assist lap yogi fundoplication done 08/07/2015 2 Elevated d-dimer expected postop change with CAT scan of the chest no evidence of a pulmonary emboli 3 Anxiety disorder nonspecified 4 CAT scan of the chest bilateral pleural effusion atelectasis suspect mild volume overload 5 History of chronic reflux esophagitis 6 hiatal hernia with refractory GERD 7 Obesity BMI 34 8 Hiatal hernia with gastroesophageal reflux disease with esophagitis acute preserved LV function EF 55 to 60% per echocardiogram 08/10/2015 The above dictated assessment and findings were discussed with dr piña. Impression and the plan of care have been dictated as directed. Alem Tyler nurse practitioner acting as a scribe for dr alcantara Plan - Discharge Summary New Discharge Prescriptions: Hydrocodone/Acetaminophen [Hycet 7.5 mg-325 mg/15 ml Soln] 15 ml PO Q4-6H #500 ml Discharge Medication List Omeprazole [PriLOSEC] 20 mg PO AC-BRKFST 12/12/14 [History] ALPRAZolam [Xanax] 0.25 mg PO Q8H PRN 07/22/16 [History] Cetirizine HCl [Zyrtec] 10 mg PO DAILY 07/22/16 [History] Hydrocodone/Acetaminophen [Hycet 7.5 mg-325 mg/15 ml Soln] 15 ml PO Q4-6H #500 ml 08/07/16 [Rx] Acetaminophen Oral Susp [Tylenol] 650 mg PO Q6H PRN #0 cup 08/10/16 [Rx] Follow up Appointment(s)/Referral(s): Nelia Alcantara MD [STAFF PHYSICIAN] - 08/18/16 Patient Instructions/Handouts: *Surgery [facility] - Scopalamine Patch Instructions Activity/Diet/Wound Care/Special Instructions: OK to shower . No soaking bath. No heavy lifting more than 10 lbs for 6 weeks post surgery. No driving while taking narcotics for pain. May use ice packs for local pain relief Follow post Yogi diet protocol. Full liquids for 2 weeks Use incentive spireometry 10 times an hour while awake Discharge Disposition: HOME SELF-CARE
[2016-08-10] MEDS: ALPRAZolam 0.25 MG TAB PO SCH ×2 (14:23)
--- NOTE | 2016-08-10 15:11 | CDI ---
In responding to this query, please exercise your independent professional judgment. The [facility] Coding Staff and Clinical Documentation Specialists appreciate your assistance in clarifying documentation, maintaining compliance with coding guidelines, accurately documenting patients condition and capturing severity of illness. The fact that a question is asked does not imply that any particular answer is desired or expected. Communication forms are a method of clarifying documentation and are not made part of the Legal Health Record. Thank you in advance for your clarification. Last Revision, October 2015 Please defer the question to business intelligence analyst. DR. Beckwith . No prior history of CHF . Unable to comment if this was acute or chronic [facility] [address] [place] [address] Documentation Clarification Form Date: 08/10/2016 3:00:00 PM From: Kalli Brower RN, CCDS Admit Date: 08/07/2016 8:54:00 AM Patient Name: Jess Early Visit Number: [id number] Discharge Date: Dr. Nelia Mata/ Alem Tyler CNP CHF is documented in the Pulmonary consult. History/Risk Factors: GERD, anxiety Clinical Indicators: VS/Pulse OX: Temp 97, HR 67, RR 16, B/P 142/78, Spo2 98% ra Echocardiogram Results: 55-60% 08/09 Chest X Ray: Consider CHF exacerbation, mild cardiomegly, moderate bilateral pleural effusions Treatment: Consults: Pulmonary Iv Lasix 20 mg IVP x1 In your professional opinion, can you please clarify the acuity and type of CHF if known? Acute Chronic Acute on Chronic AND Systolic Diastolic Systolic and Diastolic Cor Pulmonale (Right Sided HF w/ Pulmonary HTN) Unable to determine Other, please specify If known, please specify if Heart Failure is due to: Hypertension Rheumatic Fever Please document in your progress notes and discharge summary in order to capture severity of illness and risk of mortality. Include clinical findings that support your diagnosis. FYI: Press F11 to launch patient chart. Place X here if this finding has no clinical significance, is not applicable or if you are not able to provide any additional documentation. MTDD
== END 2016-08-10 14:15 | disposition home or self-care (01) | DRG 326 ==
LOC: 2ORWHC 08:54 → 6PED 14:44
PROVIDERS: ADMIT Surgery; ATTEND Surgery
PROC: 8E0W4CZ Robotic Assisted Procedure of Trunk Region, Percutaneous Endoscopic Approach (ICD-10-PCS; principal; 2016-08-07 10:30)
PROC: 0DV44ZZ Restriction of Esophagogastric Junction, Percutaneous Endoscopic Approach (ICD-10-PCS; principal; 2016-08-07 10:30)
PROC: 0BUS4JZ (ICD-10-PCS; principal; 2016-08-07 10:30)
PROC: 0BUR4JZ (ICD-10-PCS; principal; 2016-08-07 10:30)
DX: K21.0 Gastro-esophageal reflux disease with esophagitis (principal); I50.33 Acute on chronic diastolic (congestive) heart failure; E66.9 Obesity, unspecified; Z68.39 Body mass index [BMI] 39.0-39.9, adult; J98.11 Atelectasis; I11.0 Hypertensive heart disease with heart failure; K44.9 Diaphragmatic hernia without obstruction or gangrene; R09.02 Hypoxemia; F41.1 Generalized anxiety disorder; Z87.891 Personal history of nicotine dependence; Z79.899 Other long term (current) drug therapy
CPT/HCPCS: 71020; 71275; 74240; 80051; 80053; 82310; 82565; 83735; 84100; 84484; 84520; 85025; 85379; 86850; 86900; 86901; 93005; 93306; 93965; 93970; 94640; 94760

== ENCOUNTER 2016-10-19 07:47 | Day surgery (SDC) | payer OTHER ==
[2016-10-14 12:45] VITALS: BMI 31.6
[~2016-10-19 07:47] MED LIST changes: -CHLORHEXIDINE GLUCONATE 15 ML CUP MUCOUS MEM ONE; -DEXAMETHASONE SOD PHOSPHATE 10 MG/ML 1 ML VIAL IV ONE; -HEPARIN SODIUM,PORCINE 5,000 UNIT/ML 1 ML VIAL SQ ONE; -HYDROmorphone 1 MG/ML 1 ML SYRINGE IVP PRN; +LIDOCAINE 1% 20 ML VIAL (10MG/ML) FOR IV START INTRADERMA PRN; -MIDAZOLAM 2 MG/2 ML VIAL IV PRN; -ONDANSETRON 4 MG/2 ML VIAL IVP ONE; -SCOPOLAMINE 1.5MG/72HR PATCH TRANSDERM ONE
[2016-10-19 08:18] VITALS: TEMP 97.8
[2016-10-19] MEDS: LACTATED RINGERS 1,000 ML IV SCH ×2 (08:19→08:27)
[2016-10-19] MEDS ORDERED: LIDOCAINE 1% INJ 10MG/ML (20 ML MDV) ONE (08:28)
[2016-10-19] MEDS ORDERED: PROPOFOL 10 MG/ML 20 ML VIAL IV ONE (08:28)
--- NOTE | 2016-10-19 08:45 | P.OP ---
Date of Procedure: 10/19/16 Preoperative Diagnosis: Dysphagia Intermittent diarrhea Status post robotic-assisted laparoscopic Yogi fundoplication Postoperative Diagnosis: Duodenal polyp Intact Yogi fundoplication wrap Procedure(s) Performed: EGD with biopsy Anesthesia: MAC (ASA 1), other Surgeon: Nelia Mata Pathology: other Condition: stable Disposition: PACU Indications for Procedure: 60 years old female status post robotic-assisted laparoscopic Yogi fundoplication for hiatal hernia and GERD presents with intermittent episodes of dysphagia. She also has intermittent diarrhea and abdominal cramps. Informed consent obtained and patient elected to undergo EGD with possible biopsy Operative Findings: GE junction located at 35 cm from the anal verge. The Yogi fundoplication wrap appears intact. There is no stricture or stenosis . 5 mm polyp in the first portion of duodenum. Description of Procedure: A timeout was performed to verify the correct patient and correct procedure. Patient was on continuous vitals and pulse ox monitoring throughout the procedure. She was placed in lateral decubitus position and an oral bite block was inserted. A well-lubricated Olympus upper endoscope was passed orally. The esophagus was intubated without difficulty. The vocal cords were visualised and protected at all times. The endoscope could be easily passed into beyond the GE junction. There was no stricture or stenosis . The endoscope was passed beyond the pylorus into the first and second portion of the duodenum. Single 5 mm polyp identified in the 1st portion of duodenum which was biopsied using cold biopsy forceps. The scope was then retroflexed. No hiatal hernia. The wrap was intact. No mass, active ulcer or bleeding stigmata noted within the gastric lumen. The GE junction is measured at 35 cm from the incisors . Mild distal esophagitis <1 cm. This area was biopsied using cold biopsy forceps. The endoscope was gradually withdrawn. No abnormality identified in the esophagus. Patient tolerated the procedure well and was taken to post anesthesia care unit in stable condition. SPECIMEN: Duodenum biopsy Distal esophagus bx Final Pathologic Diagnosis A. DUODENUM, BIOPSY: MATURE BENIGN SMALL BOWEL MUCOSA WITH A NORMAL VILLOUS ARCHITECTURE AND SUBMUCOSAL ZOILA GLANDS. B. ESOPHAGUS, BIOPSY: SQUAMOGLANDULAR MUCOSA CONSISTENT WITH GASTROESOPHAGEAL JUNCTION DEMONSTRATING CHRONIC ESOPHAGITIS AND ACUTE AND CHRONIC INFLAMMATION OF THE GASTRIC TYPE GLANDULAR MUCOSA. NEGATIVE FOR INTESTINAL METAPLASIA.
[2016-10-19 09:15] VITALS: BP 136/75; PULSE 81; RESP 18
== END 2016-10-19 09:42 | disposition home or self-care (01) ==
LOC: ORWHC2ENDO 07:47
PROVIDERS: ATTEND Surgery
DX: K21.0 Gastro-esophageal reflux disease with esophagitis (principal); K31.7 Polyp of stomach and duodenum; R19.7 Diarrhea, unspecified; Z98.890 Other specified postprocedural states; F41.9 Anxiety disorder, unspecified; Z79.899 Other long term (current) drug therapy; Z87.891 Personal history of nicotine dependence
CPT/HCPCS: 88305; 43239; J2001; J2704

== ENCOUNTER → 2019-02-10 | Day surgery (SDC) | payer OTHER ==
[~2019-02-10] MED LIST changes: +BUPIVACAINE (PF) 0.5% 30 ML VIAL SQ ONE; +DEXAMETHASONE SOD PHOSPHATE 10 MG/ML 1 ML VIAL IV ONE; +HYDROmorphone 0.5 MG/0.5 ML SYRINGE IVP PRN; +LACTATED RINGERS 1,000 ML IV ONE; +LACTATED RINGERS 1,000 ML IV SCH; -LIDOCAINE 1% 20 ML VIAL (10MG/ML) FOR IV START INTRADERMA PRN; +LIDOCAINE 1% INJ 10MG/ML (20 ML MDV) SQ ONE; +LIDOCAINE 1%-EPI 1:100,000 20 ML VIAL SQ ONE; +LIDOCAINE 1%-EPI 1:100,000 30 ML VIAL SQ ONE; +MIDAZOLAM 2 MG/2 ML VIAL IV PRN; +MIDAZOLAM 2 MG/2 ML VIAL ONE; +ONDANSETRON 4 MG/2 ML VIAL IVP ONE; +PROPOFOL 10 MG/ML 20 ML VIAL IV ONE; +Pre Op ABX Message 1 EACH MISC MISCELLANE ONE; +SCOPOLAMINE 1.5MG/72HR PATCH TRANSDERM ONE; +fentaNYL (PF) 50 MCG/ML 2 ML AMP ONE
[2019-02-10 13:00] VITALS: TEMP 97.7
--- NOTE | 2019-02-10 15:58 | P.OP ---
Date of Procedure: 02/10/19 Preoperative Diagnosis: Right carpal tunnel syndrome Postoperative Diagnosis: Right carpal tunnel syndrome Procedure(s) Performed: Right endoscopic carpal tunnel release Anesthesia: MAC, local Surgeon: Keith Washington Estimated Blood Loss (ml): 1 Condition: stable Disposition: PACU Indications for Procedure: The patient is a pleasant 63-year-old female who was diagnosed with right carpal tunnel syndrome. Treatment options (and associated risks and benefits) were discussed in the office. The patient elected to proceed with surgical release. In preop, the patient denied any additional questions or concerns. Consent forms were signed. The operative site was confirmed and marked. Description of Procedure: The patient was positioned supine with the right arm on an arm board. A tourniquet was applied. Monitored anesthesia was administered uneventfully. A time-out was performed, confirming patient identifiers, the operative side, site and the procedure to be performed: all team members expressed agreement. Using aseptic technique, local anesthetic was injected into the subcutaneous tissues around the planned incision. The right upper extremity was then prepped and draped in standard, sterile fashion. The limb was exsanguinated with an Esmarch and the tourniquet was inflated. Loupe magnification was used throughout the case for optimum visualization. A 1.5 cm transverse incision was marked just proximal to the wrist flexion crease, in line with the radial border of the ring finger. The skin was sharply incised and the subcutaneous tissues were bluntly spread. The volar carpal fascia was identified and sharply incised, just ulnar to the palmaris longus tendon. A synovial elevator was used to release adhesions on the underside of the transverse carpal ligament. The washboard effect was palpable. A dilator was inserted to sound and enlarge the carpal tunnel. The hamate hook was palpable ulnarly. The side-specific guide and camera were inserted. The transverse carpal ligament was clearly visualized above. The distal edge of the ligament was identified and palpated with a probe. A rasp was used to clear the remaining synovial adhesions. The endoscopic blade was inserted and the distal half of the ligament was sharply incised. This was quite thickened and dense. Residual distal transverse fibers were released and then the proximal portion of the ligament was divided. Wide release of ligament was visually confirmed. The camera was removed. The volar carpal fascia proximal and distal to the incision was released with scissors under direct visualization. The tourniquet was released after 14 minutes at 250 mmHg. Good hemostasis was obtained with held pressure. The wound was thoroughly irrigated with normal saline. The incision was closed with interrupted 4-0 Nylon sutures. Additional local anesthetic with epinephrine was injected for adjunctive postoperative pain control and hemostasis. A soft, sterile dressing was applied. All sponge, needle and instrument counts were correct at the end of the case. The patient tolerated the procedure well and was transferred to recovery in stable condition.
[2019-02-10 16:02] VITALS: BP 144/62; PULSE 78; RESP 16
== END | disposition home or self-care (01) ==
LOC: OR 12:40
PROVIDERS: ATTEND Orthopaedic Surgery
DX: G56.01 Carpal tunnel syndrome, right upper limb (principal); L30.9 Dermatitis, unspecified; K21.9 Gastro-esophageal reflux disease without esophagitis; Z90.49 Acquired absence of other specified parts of digestive tract; Z87.891 Personal history of nicotine dependence; F41.9 Anxiety disorder, unspecified; Z79.899 Other long term (current) drug therapy; Z91.048 Other nonmedicinal substance allergy status
CPT/HCPCS: 29848; J2250; J1100; J2405; J3010; J2704

== ENCOUNTER → 2019-05-25 | Outpatient (CLI) | payer OTHER ==
--- NOTE | 2019-05-25 10:56 | MR ---
EXAMINATION TYPE: MR lumbar spine wo con DATE OF EXAM: 05/25/2019 COMPARISON: None HISTORY: Low back pain TECHNIQUE: Multiplanar, multisequence images of the lumbar spine were acquired. L1-L2: Normal disc appearance without desiccation. No herniation, protrusion or disc bulging. No ca nal stenosis is present. Foramina are patent bilaterally. L2-L3: Normal disc appearance without desiccation. No herniation, protrusion or disc bulging. No ca nal stenosis is present. Foramina are patent bilaterally. L3-L4: No significant disc herniation or foraminal encroachment. No spinal stenosis. L4-L5: Posterior broad-based disc bulge causes mild anterior mass effect on the thecal sac. Circumfer ential extension of endplate disc complex encroaches mildly on the foramina. No significant spinal st enosis. There is facet arthropathy change noted. L5-S1: Set arthropathy changes present. There is a circumferential posterior disc bulge contacts the anterior thecal sac and possibly the proximal S1 nerve roots. Circumferential extension of endplate d isc complex results in bilateral foraminal encroachment. No significant spinal stenosis. Lumbar segments are intact. No paraspinal masses are identified. Conus medullaris has a normal appe arance. Lumbar vertebral bodies show preserved height and alignment. Loss of disc height signal is pr esent greatest at L4-5, there is endplate discogenic marrow signal change and associated spondylosis L4-5, L5-S1. There is mild spinal curvature. IMPRESSION: Degenerative disc disease and facet arthropathy. Multilevel foraminal encroachment. No significant sp inal stenosis.
== END | disposition home or self-care (01) ==
LOC: RADMRIMAIN 08:37
PROVIDERS: ATTEND Family Medicine
DX: M51.36 Other intervertebral disc degeneration, lumbar region (principal); M46.96 Unspecified inflammatory spondylopathy, lumbar region
CPT/HCPCS: 72148

== ENCOUNTER → 2019-08-11 | Outpatient (CLI) | payer OTHER ==
--- NOTE | 2019-08-11 13:48 | US ---
EXAMINATION TYPE: US transvaginal DATE OF EXAM: 08/11/2019 COMPARISON: NONE CLINICAL HISTORY: R19.09 INTRA ABDOMINAL AND PELVIC SWELLING,MASS AND LUMP. Pelvic mass felt by [facility] 1 month ago, 1, para 1, history of tubal ligation. TECHNIQUE: Transvaginal exam only per ordering physician. Date of LMP: 20 years ago EXAM MEASUREMENTS: Uterus: 5.4 x 2.4 x 3.4 cm Endometrial Stripe: 0.2 cm Right Ovary: not seen Left Ovary: not seen 1. Uterus: anteverted, 2.2 x 1.8 x 1.7cm hyperechoic heterogeneous mass mid uterus 2. Endometrium: limited visualization, appears wnl as seen 3. Right Ovary: not seen 4. Left Ovary: not seen 5. Bilateral Adnexa: wnl 6. Posterior cul-de-sac: wnl IMPRESSION: Poorly defined heterogeneous fairly isoechoic 2.2 cm lesion with posterior shadowing, lik liz intramural fibroid mid aspect uterus likely accounting for physical exam abnormality.
== END | disposition home or self-care (01) ==
LOC: RADUSWWP 10:26
PROVIDERS: ATTEND Family Medicine
DX: N85.9 Noninflammatory disorder of uterus, unspecified (principal)
CPT/HCPCS: 76830

== ENCOUNTER 2019-08-30 07:20 | Day surgery (SDC) | payer OTHER ==
[~2019-08-30 07:20] MED LIST changes: -BUPIVACAINE (PF) 0.5% 30 ML VIAL SQ ONE; -DEXAMETHASONE SOD PHOSPHATE 10 MG/ML 1 ML VIAL IV ONE; -HYDROmorphone 0.5 MG/0.5 ML SYRINGE IVP PRN; -LACTATED RINGERS 1,000 ML IV ONE; +LIDOCAINE 1% 20 ML VIAL (10MG/ML) FOR IV START INTRADERMA PRN; -LIDOCAINE 1% INJ 10MG/ML (20 ML MDV) SQ ONE; -LIDOCAINE 1%-EPI 1:100,000 20 ML VIAL SQ ONE; -LIDOCAINE 1%-EPI 1:100,000 30 ML VIAL SQ ONE; -MIDAZOLAM 2 MG/2 ML VIAL IV PRN; -MIDAZOLAM 2 MG/2 ML VIAL ONE; -ONDANSETRON 4 MG/2 ML VIAL IVP ONE; -PROPOFOL 10 MG/ML 20 ML VIAL IV ONE; -Pre Op ABX Message 1 EACH MISC MISCELLANE ONE; -SCOPOLAMINE 1.5MG/72HR PATCH TRANSDERM ONE; -fentaNYL (PF) 50 MCG/ML 2 ML AMP ONE
[2019-08-30] MEDS ORDERED: LIDOCAINE 1% 20 ML VIAL (10MG/ML) FOR IV START INTRADERMA ONE (07:51)
[2019-08-30] MEDS ORDERED: LACTATED RINGERS 1,000 ML IV ONE (07:51)
[2019-08-30 07:57] VITALS: RESP 16; TEMP 96
[2019-08-30] MEDS ORDERED: PROPOFOL 10 MG/ML 20 ML VIAL IV ONE (08:14)
[2019-08-30] MEDS ORDERED: LIDOCAINE 1% INJ 10MG/ML (20 ML MDV) ONE (08:14)
--- NOTE | 2019-08-30 08:26 | P.GSHP ---
History of Present Illness H&P Date: 08/30/19 CHIEF COMPLAINT: GERD HISTORY OF PRESENT ILLNESS: The patient is a 63-year-old female who presents reports gastroesophageal reflux disease. Upper endoscopy was offered for further evaluation and management. PAST MEDICAL HISTORY: Please see list. PAST SURGICAL HISTORY: Please see list. MEDICATIONS: Please see list. ALLERGIES: Please see list. SOCIAL HISTORY: No illicit drug use FAMILY HISTORY: No reports of Crohn disease or ulcerative colitis. REVIEW OF ORGAN SYSTEMS: CONSTITUTIONAL: No reports of fevers or chills. GI: Denies any blood in stools or constipation. PHYSICAL EXAM: VITAL SIGNS: Stable GENERAL: Well-developed and pleasant in no acute distress. HEENT: No scleral icterus. Extraocular movements grossly intact. Moist buccal mucosa. NECK: Supple without lymphadenopathy. CHEST: Unlabored respirations. Equal bilateral excursions. CARDIOVASCULAR: Regular rate and rhythm. Distal 2+ pulses. ABDOMEN: Soft, nondistended. MUSCULOSKELETAL: No clubbing, cyanosis, or edema. ASSESSMENT: 1. Gastroesophageal reflux disease PLAN: 1. Recommend proceeding with an upper endoscopy Past Medical History Past Medical History: GERD/Reflux, Hypertension, Skin Disorder Additional Past Medical History / Comment(s): SEASONAL ALLERGIES, ECZEMA TO FACE/ARMS OCCASIONALLY, VARICOSE VEINS. Hx hiatal hernia. History of Any Multi-Drug Resistant Organisms: None Reported Past Surgical History: Cholecystectomy, Tubal Ligation Additional Past Surgical History / Comment(s): COLONOSCOPY, EGD, "gastric reflux surgery with mesh " Past Anesthesia/Blood Transfusion Reactions: Motion Sickness Additional Past Anesthesia/Blood Transfusion Reaction / Comment(s): NO HX BLOOD TRANSFUSION. Smoking Status: Former smoker - Past Family History Mother Family Medical History: No Reported History Additional Family Medical History / Comment(s): ALHEIMER'S Father Family Medical History: Cancer Additional Family Medical History / Comment(s): throat CA Medications and Allergies Home Medications Medication Instructions Recorded Confirmed Type Cetirizine HCl [Zyrtec] 10 mg PO DAILY 07/22/16 08/30/19 History Escitalopram [Lexapro] 20 mg PO HS 02/08/19 08/30/19 History Chlorthalidone [Hygroton] 25 mg PO DAILY 08/25/19 08/30/19 History Hydrocortisone Cream 1 applic PO DAILY PRN 08/25/19 08/30/19 History Multivit with Calcium,Iron,Min 1 each PO DAILY 08/25/19 08/30/19 History [Women's Multivitamin] diphenhydrAMINE [Benadryl] 25 mg PO HS PRN 08/25/19 08/30/19 History Allergies Allergy/AdvReac Type Severity Reaction Status Date / Time dog dander AdvReac Rash/Hives Verified 08/30/19 07:46 grass pollen AdvReac Rash/Hives Verified 08/30/19 07:46 Surgical - Exam Vital Signs Temp Pulse Resp BP Pulse Ox 96 F L 63 16 154/68 97 08/30/19 07:55 08/30/19 07:55 08/30/19 07:55 08/30/19 07:55 08/30/19 07:55
--- NOTE | 2019-08-30 08:29 | P.PCN ---
Date of Procedure: 08/30/19 Description of Procedure: PREOPERATIVE DIAGNOSIS: Gastroesophageal reflux disease. POSTOPERATIVE DIAGNOSIS: Gastritis. Gastroesophageal reflux disease. History of Yogi fundoplication OPERATION: Esophagogastroduodenoscopy with biopsies along antrum. SURGEON: Vannesa Emerson MD ANESTHESIA: MAC. INDICATIONS: The patient is a 63-year-old female who presents with a history of reflux disease. Benefits and risks of the procedure were described. Informed consent was obtained. DESCRIPTION: The patient was brought into the endoscopy suite and laid in the left lateral decubitus position. An Olympus gastroscope was passed along the posterior oropharynx down to the distal esophagus where the squamocolumnar junction was encountered at 40 cm from the incisors. The stomach was entered and no bile reflux was found. Additional findings are listed below. Biopsies with cold forceps were obtained of the antrum. The first through third portion of the duodenum was examined and remarkable hypertensive pylorus. Retroflexion of the scope confirmed Hill grade 1 lower esophageal valve. The squamocolumnar junction demonstrated LA grade A erosive esophagitis. The stomach was desufflated. The patient tolerated the procedure well. FINDINGS: Squamocolumnar junction 40 cm from the incisors. Diaphragmatic hiatus at 40 cm. Hill grade 1 lower esophageal valve. LA grade A erosive esophagitis. No active duodenitis. Chronic gastritis Hypertensive pylorus RECOMMENDATIONS: Upper endoscopy as needed. Plan - Discharge Summary Discharge Rx Participant: No New Discharge Prescriptions: No Action Cetirizine HCl [Zyrtec] 10 mg PO DAILY Escitalopram [Lexapro] 20 mg PO HS Chlorthalidone [Hygroton] 25 mg PO DAILY Multivit with Calcium,Iron,Min [Women's Multivitamin] 1 each PO DAILY Hydrocortisone Cream 1 applic PO DAILY PRN PRN Reason: eczema diphenhydrAMINE [Benadryl] 25 mg PO HS PRN PRN Reason: eczema Discharge Medication List Cetirizine HCl [Zyrtec] 10 mg PO DAILY 07/22/16 [History] Escitalopram [Lexapro] 20 mg PO HS 02/08/19 [History] Chlorthalidone [Hygroton] 25 mg PO DAILY 08/25/19 [History] Hydrocortisone Cream 1 applic PO DAILY PRN 08/25/19 [History] Multivit with Calcium,Iron,Min [Women's Multivitamin] 1 each PO DAILY 08/25/19 [History] diphenhydrAMINE [Benadryl] 25 mg PO HS PRN 08/25/19 [History] Follow up Appointment(s)/Referral(s): Vannesa Emerson MD [STAFF PHYSICIAN] - 09/12/19 Patient Instructions/Handouts: Gastroesophageal Reflux Disease (DC) Discharge Disposition: HOME SELF-CARE
[2019-08-30 08:53] VITALS: BP 123/69; PULSE 62
== END 2019-08-30 09:14 | disposition home or self-care (01) ==
LOC: ORWHC2ENDO 07:20
PROVIDERS: ATTEND Surgery Plastic and Reconstructive Surgery
DX: K29.50 Unspecified chronic gastritis without bleeding (principal); K21.0 Gastro-esophageal reflux disease with esophagitis; K22.10 Ulcer of esophagus without bleeding; I10 Essential (primary) hypertension; J30.2 Other seasonal allergic rhinitis; Z86.19 Personal history of other infectious and parasitic diseases; I83.90 Asymptomatic varicose veins of unspecified lower extremity; Z90.49 Acquired absence of other specified parts of digestive tract; Z98.51 Tubal ligation status; Z98.890 Other specified postprocedural states; Z87.891 Personal history of nicotine dependence; Z80.2 Family history of malignant neoplasm of other respiratory and intrathoracic organs; Z82.0 Family history of epilepsy and other diseases of the nervous system; Z79.899 Other long term (current) drug therapy; Z91.048 Other nonmedicinal substance allergy status
CPT/HCPCS: 88305; 43239; J2001; J2704

== ENCOUNTER → 2023-07-01 | Outpatient (CLI) | payer MEDICARE, OTHER ==
--- NOTE | 2023-07-01 15:14 | CT ---
EXAMINATION: CT ABDOMEN AND PELVIS WITHOUT IV CONTRAST DATE OF EXAMINATION: 07/01/2023. COMPARISON: None available. INDICATION: Left flank pain. PROCEDURE: Axial CT of the abdomen and pelvis was performed with sagittal and coronal reformatted i mages without contrast enhancement. The exam is limited because some types of pathology may not be ad equately demonstrated due to lack of contrast enhancement. CT dose lowering techniques were used, to include: automated exposure control, adjustment for patient size, and/or use of iterative reconstruct ion. FINDINGS: LOWER CHEST : The visualized lung bases are clear. There are no pleural effusions. Small pericardial effusion is seen. ABDOMEN: Liver and Biliary system: Normal. Adrenal glands: Normal. Kidneys and ureters: There are no renal stones or hydronephrosis. No ureteral stones are present.. Spleen: Normal. Pancreas: Normal. Gallbladder: Surgically absent. Lymph nodes, Peritoneum and mesentery: There is no mesenteric or retroperitoneal lymphadenopathy. Gastrointestinal tract: There are no dilated loops of bowel or free intraperitoneal air. . The appe ndix is normal. There is scattered colonic diverticulosis without evidence of diverticulitis. Aorta/IVC: There is moderate vascular calcification throughout the abdominal aorta without evidence of aneurysmal dilation. IVC normal. Abdominal wall: Normal. PELVIS: Fluid: There is no free fluid in the pelvis. Lymph Nodes: There is no pelvic or inguinal lymphadenopathy.. Urinary bladder: Normal. BONES: There are no osseous destructive lesions.. ADDITIONAL SIGNIFICANT FINDINGS: None. IMPRESSION: 1. No renal stones or hydronephrosis.. 2. No bowel obstruction or appendicitis. 3. Diverticulosis without evidence of diverticulitis.
== END | disposition home or self-care (01) ==
LOC: RADCTMAIN 14:36
PROVIDERS: ATTEND Family Medicine
DX: K57.30 Diverticulosis of large intestine without perforation or abscess without bleeding (principal); R10.9 Unspecified abdominal pain
CPT/HCPCS: 74176

== ENCOUNTER 2024-04-16 19:58 | Observation (INO) | payer MEDICARE, OTHER ==
[2024-04-16] MEDS ORDERED: MORPHINE SULFATE 4 MG/ML SYRINGE IVP PRN (21:11)
[2024-04-16] MEDS ORDERED: ONDANSETRON 4 MG/2 ML VIAL IVP PRN (21:11)
--- NOTE | 2024-04-16 21:15 | ED ---
Female Urogenital HPI - General Stated complaint: Kidney Pain Time Seen by Provider: 04/16/24 21:12 Source: patient, RN notes reviewed, old records reviewed Mode of arrival: EMS Limitations: no limitations - History of Present Illness Initial comments: 68-year-old female presented to the ER via EMS from [facility] for further evaluation of kidney stone. Patient states around 3 PM this evening she started to experience sudden onset of sharp left flank pain. Patient also reports dry heaves and diaphoresis. No history of kidney stones. Patient states she was having intermittent left flank pain for the past week. Patient was evaluated at [facility] and found to have a 3 mm calculus at the UVJ with mild left-sided hydronephrosis. Patient does report a recent UTI approximately 1-2 weeks ago and was treated with antibiotics at that time. Patient received IV Rocephin prior to transfer. Patient given IV rocephin prior to transfer. Patient denying fevers, chills, nausea or vomiting, diarrhea/constipation, chest pain or shortness of breath. - Related Data Home Medications Medication Instructions Recorded Confirmed Cetirizine HCl [Zyrtec] 10 mg PO DAILY 07/22/16 08/30/19 Escitalopram [Lexapro] 20 mg PO HS 02/08/19 08/30/19 Chlorthalidone [Hygroton] 25 mg PO DAILY 08/25/19 08/30/19 Hydrocortisone Cream 1 applic PO DAILY PRN 08/25/19 08/30/19 Multivit with Calcium,Iron,Min 1 each PO DAILY 08/25/19 08/30/19 [Women's Multivitamin] diphenhydrAMINE [Benadryl] 25 mg PO HS PRN 08/25/19 08/30/19 Allergies Allergy/AdvReac Type Severity Reaction Status Date / Time dog dander AdvReac Rash/Hives Verified 08/30/19 07:46 grass pollen AdvReac Rash/Hives Verified 08/30/19 07:46 Review of Systems ROS Statement: Those systems with pertinent positive or pertinent negative responses have been documented in the HPI. ROS Other: All systems not noted in ROS Statement are negative. Past Medical History Past Medical History: GERD/Reflux, Skin Disorder Additional Past Medical History / Comment(s): SEASONAL ALLERGIES, ECZEMA TO FACE AND ARMS OCCASIONALLY,VARICOSE VEINS, History of Any Multi-Drug Resistant Organisms: None Reported Past Surgical History: Cholecystectomy, Tubal Ligation Additional Past Surgical History / Comment(s): COLONOSCOPY,EGD, " gastric reflux surgery with mesh " Past Anesthesia/Blood Transfusion Reactions: Motion Sickness Additional Past Anesthesia/Blood Transfusion Reaction / Comment(s): NO HX BLOOD TRANSFUSION. Additional Past Alcohol Use History / Comment(s): QUIT SMOKING 1989 SMOKED APPROX 10 YRS 1PPD SMOKED 1 1/2 PPD - Past Family History Mother Family Medical History: No Reported History Additional Family Medical History / Comment(s): ALHEIMER'S Father Additional Family Medical History / Comment(s): throat CA General Exam General appearance: alert, in no apparent distress Respiratory exam: Present: normal lung sounds bilaterally. Absent: respiratory distress, wheezes, rales, rhonchi, stridor Cardiovascular Exam: Present: regular rate, normal rhythm, normal heart sounds. Absent: systolic murmur, diastolic murmur, rubs, gallop, clicks GI/Abdominal exam: Present: soft, normal bowel sounds. Absent: distended, tenderness, guarding, rebound, rigid Back exam: Present: normal inspection Neurological exam: Present: alert, oriented X3, CN II-XII intact Skin exam: Present: warm, dry, intact, normal color. Absent: rash Course Vital Signs 04/16/24 21:42 Temperature 98.7 F Pulse Rate 76 Respiratory 16 Rate Blood Pressure 138/78 O2 Sat by Pulse 94 L Oximetry - Reevaluation(s) Reevaluation #1: 04/16/24 22:01 Case discussed with distribution associate urology, Dr. Coburn, who advised on admission. KUB xray, urine culture and NPO at midnight. 04/16/24 22:23 Case discussed with [facility], Annel Barcenas, for admission. Medical Decision Making - Medical Decision Making Was pt. sent in by a medical professional or institution (, PA, PILOT PLANT OPERATOR, urgent care, hospital, or long term...) When possible be specific @ -Patient transferred by [facility] for further evaluation of nephrolithiasis. Did you speak to anyone other than the patient for history (EMS, parent, family, police, friend...)? What history was obtained from this source @ -No Did you review nursing and triage notes (agree or disagree)? Why? @ -I reviewed and agree with nursing and triage notes Were old charts reviewed (outside hosp., previous admission, EMS record, old EKG, old radiological studies, urgent care reports/EKG's, long term records)? Report findings @ -Yes I reviewed laboratory studies and CT abdomen pelvis report from [facility] on 04-16-2024. CT abdomen pelvis showing a 3 mm calculus at the UVJ causing mild left-sided hydronephrosis. Urine showed moderate bacteria. Negative leukocyte esterases, nitrates, blood. Trace ketones. WBC 10.79 with a left shift of 8. Patient started on IV Rocephin 1 g. Due to concern of a septic calculus patient was transferred here for urology consult and pain management. Differential Diagnosis (chest pain, altered mental status, abdominal pain women, abdominal pain men, vaginal bleeding, weakness, fever, dyspnea, syncope, headache, dizziness, GI bleed, back pain, seizure, CVA, palpatations, mental health, musculoskeletal)? @ -Differential Abdominal Pain Women: Appendicitis, Cholecystitis, diverticulosis, ischemic bowel, pancreatitis, hepatitis, UTI, gastroenteritis, AAA, incarcerated hernia, bowel obstruction, constipation, inflammatory bowel, hepatitis, peptic ulcer disease, splenic infarction, perforated viscus, vulviti s, ovarian torsion, PID, kidney stone, placenta abruption, this is not meant to be an all-inclusive list EKG interpreted by me (3pts min.). @ -None done X-rays interpreted by me (1pt min.). @ -None done CT interpreted by me (1pt min.). @ -None done U/S interpreted by me (1pt. min.). @ -None done What testing was considered but not performed or refused? (CT, X-rays, U/S, labs)? Why? @ -None What meds were considered but not given or refused? Why? @ -None Did you discuss the management of the patient with other professionals (professionals i.e. , PA, PILOT PLANT OPERATOR, lab, RT, psych nurse, foster care social worker, scalemaker, teacher, security vehicle patrol officer, rifle case repairer)? Give summary @ -Case discussed with on-call urology, , who accepts consult with medicine admission. KUB, urine culture and NPO orders made per urology request. Case also discussed with [facility], [place] Narinder PILOT PLANT OPERATOR, for admission. Was smoking cessation discussed for >3mins.? @ -No Was critical care preformed (if so, how long)? @ -No Were there social determinants of health that impacted care today? How? (Homelessness, low income, unemployed, alcoholism, drug addiction, transportation, low edu. Level, literacy, decrease access to med. care, detention, rehab)? @ -No Was there de-escalation of care discussed even if they declined (Discuss DNR or withdrawal of care, Hospice)? DNR status @ -No What co-morbidities impacted this encounter? (DM, HTN, Smoking, COPD, CAD, Cancer, CVA, ARF, Chemo, Hep., AIDS, mental health diagnosis, sleep apnea, morbid obesity)? @ -None Was patient admitted / discharged? Hospital course, mention meds given and route, prescriptions, significant lab abnormalities, going to OR and other pertinent info. @ -Admitted. 68-year-old female presenting to the ER via EMS from [facility] transferred for further evaluation of ureterolithiasis. History and physical exam completed. Vitals within normal limits. I reviewed laboratory studies and CT abdomen pelvis from [facility] on 2023. CT abdomen pelvis showing a 3 mm calculus at the UVJ causing mild left- sided hydronephrosis. Urine showed moderate bacteria. Negative leukocyte esterases, nitrates, blood. Trace ketones. WBC 10.79 with PMNs of 8. Patient started on IV Rocephin 1 g. Due to concern of a septic calculus patient was transferred here for urology consult and pain management. Upon my evaluation, patient resting comfortably in exam room in no signs of acute distress. Patient reporting her pain is returning at this time. Laboratory studies completed here showing WBC 10.1 PNM's 8.5. Sodium 134, potassium 3.3, BUN 25, creatinine 1.43). GFR 38. Lactic 1.0. Urine analysis showing 7 RBCs with rare bacteria. Urine sent for culture. Admission considered for urology consult and intractable pain. I discussed this case with on-call urology, Dr. Coburn, who accepts consult with medicine admission. KUB, urine culture and n.p.o. was made per urology request. KUB results pending at time of admission. Case also discussed with [facility], Annel Barcenas PILOT PLANT OPERATOR, for admssion. Patient agreeable for admis roya. Rocephin ordered QD. Patient admitted in stable condition for further evaluation and treatment. Case discussed with ED attending, Dr. Cabrales. Undiagnosed new problem with uncertain prognosis? @ -No Drug Therapy requiring intensive monitoring for toxicity (Heparin, Nitro, Insu moiz, Cardizem)? @ -No Were any procedures done? @ -No Diagnosis/symptom? @ -Ureterolithiasis/hydronephrosis secondary to obstructing calculus/intractable pain Acute, or Chronic, or Acute on Chronic? @ -Acute Uncomplicated (without systemic symptoms) or Complicated (systemic symptoms)? @ -Complicated Side effects of treatment? @ -No Exacerbation, Progression, or Severe Exacerbation? @ -No Poses a threat to life or bodily function? How? (Chest pain, USA, DE, pneumonia, PE, COPD, DKA, ARF, appy, cholecystitis, CVA, Diverticulitis, Homicidal, Suicidal, threat to staff... and all critical care pts) @ -Yes, urolithiasis with concurrent UTI can lead to sepsis which can lead to endorgan dysfunction which is life-threatening. - Lab Data Result diagrams: 04/16/24 21:34 04/16/24 21:34 Lab Results 04/16/24 04/16/24 04/16/24 Range/Units 21:34 21:34 21:34 WBC 10.1 (3.8-10.6) k/uL RBC 4.08 (3.80-5.40) m/uL Hgb 12.9 (11.4-16.0) gm/dL Hct 39.0 (34.0-46.0) % MCV 95.6 (80.0-100.0) fL MCH 31.6 (25.0-35.0) pg MCHC 33.0 (31.0-37.0) g/dL RDW 13.0 (11.5-15.5) % Plt Count 305 (150-450) k/uL MPV 7.6 Neutrophils % 84 % Lymphocytes % 9 % Monocytes % 5 % Eosinophils % 0 % Basophils % 0 % Neutrophils # 8.5 H (1.3-7.7) k/uL Lymphocytes # 0.9 L (1.0-4.8) k/uL Monocytes # 0.5 (0-1.0) k/uL Eosinophils # 0.0 (0-0.7) k/uL Basophils # 0.0 (0-0.2) k/uL Sodium 134 L (137-145) mmol/L Potassium 3.3 L (3.5-5.1) mmol/L Chloride 101 (98-107) mmol/L Carbon Dioxide 22 (22-30) mmol/L Anion Gap 11 mmol/L BUN 25 H (7-17) mg/dL Creatinine 1.43 H (0.52-1.04) mg/dL Est GFR (CKD-EPI)AfAm 44 (>60 ml/min/1.73 sqM) Est GFR (CKD-EPI)NonAf 38 (>60 ml/min/1.73 sqM) Glucose 123 H (74-99) mg/dL Plasma Lactic Acid Gaurav 1.0 (0.7-2.0) mmol/L Calcium 10.4 H (8.4-10.2) mg/dL Total Bilirubin 1.0 (0.2-1.3) mg/dL AST 204 H (14-36) U/L ALT 61 H (4-34) U/L Alkaline Phosphatase 53 (38-126) U/L Total Protein 6.0 L (6.3-8.2) g/dL Albumin 3.7 (3.5-5.0) g/dL Urine Color Urine Appearance (Clear) Urine pH (5.0-8.0) Ur Specific [place] (1.001-1.035) Urine Protein (Negative) Urine Glucose (UA) (Negative) Urine Ketones (Negative) Urine Blood (Negative) Urine Nitrite (Negative) Urine Bilirubin (Negative) Urine Urobilinogen (<2.0) mg/dL Ur Leukocyte Esterase (Negative) Urine RBC (0-5) /hpf Urine WBC (0-5) /hpf Ur Squamous Epith Cells (0-4) /hpf Amorphous Sediment (None) /hpf Urine Bacteria (None) /hpf Hyaline Casts (0-2) /lpf Urine Mucus (None) /hpf 04/16/24 Range/Units 21:58 WBC (3.8-10.6) k/uL RBC (3.80-5.40) m/uL Hgb (11.4-16.0) gm/dL Hct (34.0-46.0) % MCV (80.0-100.0) fL MCH (25.0-35.0) pg MCHC (31.0-37.0) g/dL RDW (11.5-15.5) % Plt Count (150-450) k/uL MPV Neutrophils % % Lymphocytes % % Monocytes % % Eosinophils % % Basophils % % Neutrophils # (1.3-7.7) k/uL Lymphocytes # (1.0-4.8) k/uL Monocytes # (0-1.0) k/uL Eosinophils # (0-0.7) k/uL Basophils # (0-0.2) k/uL Sodium (137-145) mmol/L Potassium (3.5-5.1) mmol/L Chloride (98-107) mmol/L Carbon Dioxide (22-30) mmol/L Anion Gap mmol/L BUN (7-17) mg/dL Creatinine (0.52-1.04) mg/dL Est GFR (CKD-EPI)AfAm (>60 ml/min/1.73 sqM) Est GFR (CKD-EPI)NonAf (>60 ml/min/1.73 sqM) Glucose (74-99) mg/dL Plasma Lactic Acid Gaurav (0.7-2.0) mmol/L Calcium (8.4-10.2) mg/dL Total Bilirubin (0.2-1.3) mg/dL AST (14-36) U/L ALT (4-34) U/L Alkaline Phosphatase (38-126) U/L Total Protein (6.3-8.2) g/dL Albumin (3.5-5.0) g/dL Urine Color Yellow Urine Appearance Cloudy H (Clear) Urine pH 7.5 (5.0-8.0) Ur Specific [place] 1.022 (1.001-1.035) Urine Protein Trace H (Negative) Urine Glucose (UA) Negative (Negative) Urine Ketones Negative (Negative) Urine Blood Negative (Negative) Urine Nitrite Negative (Negative) Urine Bilirubin Negative (Negative) Urine Urobilinogen 2.0 (<2.0) mg/dL Ur Leukocyte Esterase Negative (Negative) Urine RBC 7 H (0-5) /hpf Urine WBC 2 (0-5) /hpf Ur Squamous Epith Cells <1 (0-4) /hpf Amorphous Sediment Rare H (None) /hpf Urine Bacteria Rare H (None) /hpf Hyaline Casts 7 H (0-2) /lpf Urine Mucus Few H (None) /hpf - Radiology Data Radiology results: pending (KUB) Disposition Clinical Impression: Ureterolithiasis, Hydronephrosis concurrent with and due to calculi of kidney and ureter Disposition: ADMITTED IP TO THIS HOSP Condition: Stable Time of Disposition: 22:24
[2024-04-16] MEDS: SODIUM CHLORIDE 0.9% 1,000 ML IV STA (21:48)
[2024-04-16 21:53] LABS: Basophils % (A) 0 %; Eosinophils % (A) 0 %; HGB 12.9 gm/dL (11.4-16.0); Lymphocytes # (A) 0.9 k/uL (1.0-4.8); Lymphocytes % (A) 9 %; MCH 31.6 pg (25.0-35.0); MCV 95.6 fL (80.0-100.0); Mean Platelet Volume 7.6; Monocytes # (A) 0.5 k/uL (0-1.0); Monocytes % (A) 5 %; Neutrophils # (A) 8.5 k/uL (1.3-7.7); Neutrophils % (A) 84 %; Platelet Count 305 k/uL (150-450); RBC 4.08 m/uL (3.80-5.40); WBC 10.1 k/uL (3.8-10.6)
[2024-04-16] MEDS ORDERED: ACETAMINOPHEN TAB 325 MG TAB PO PRN (22:04)
[2024-04-16] MEDS ORDERED: MORPHINE SULFATE 4 MG/ML SYRINGE IV PRN (22:04)
[2024-04-16] MEDS ORDERED: NALOXONE 0.4 MG/ML 1 ML VIAL IV PRN (22:04)
[2024-04-16 22:18] LABS: ALT 61 U/L (4-34); AST 204 U/L (14-36); African American GFR (CKD) 44 (>60 ml/min/1.73 sqM); Albumin 3.7 g/dL (3.5-5.0); Alkaline Phosphatase 53 U/L (38-126); Anion Gap 11 mmol/L; Blood Urea Nitrogen 25 mg/dL (7-17); Calcium 10.4 mg/dL (8.4-10.2); Carbon Dioxide 22 mmol/L (22-30); Chloride 101 mmol/L (98-107); Glucose 123 mg/dL (74-99); Non-African American GFR(CKD) 38 (>60 ml/min/1.73 sqM); Potassium 3.3 mmol/L (3.5-5.1); Sodium 134 mmol/L (137-145)
[2024-04-16 22:41] LABS: Amorphous Sediment,Urine Rare /hpf; Appearance,Urine Cloudy (Clear); Bacteria,Urine Rare /hpf; Bilirubin,Urine Negative (Negative); Blood,Urine Negative (Negative); Color,Urine Yellow; Glucose,Urine (UA) Negative (Negative); Hyaline Casts,Urine 7 /lpf (0-2); Ketones,Urine Negative (Negative); Leukocyte Esterase,Urine Negative (Negative); Mucus,Urine Few /hpf; Nitrite,Urine Negative (Negative); PH, Urine 7.5 (5.0-8.0); Protein,Urine Trace (Negative); RBC,Urine 7 /hpf (0-5); Specific Gravity,Urine 1.022 (1.001-1.035); Squamous Epithelial Cell,Urine <1 /hpf (0-4); WBC,Urine 2 /hpf (0-5)
[2024-04-16] MEDS: ONDANSETRON 4 MG/2 ML VIAL IVP PRN (23:04)
--- NOTE | 2024-04-17 00:46 | XR ---
EXAM: XR Abdomen, 1 View CLINICAL HISTORY: ITS.REASON XR Reason: left flank pain TECHNIQUE: Frontal supine view of the abdomen/pelvis. COMPARISON: 07/01/2023. FINDINGS: Gastrointestinal tract: Moderate quantity of stool throughout the colon. Nonspecific bowel gas pattern. No dilation. Organs: Status post cholecystectomy. No radiopaque renal calculi. Bones/joints: Gentle levoscoliosis. No acute fracture. IMPRESSION: 1. Moderate quantity of stool throughout the colon. 2. Nonspecific bowel gas pattern. 3. No radiopaque renal calculi.
[2024-04-17 08:04] VITALS: BP 117/67; PULSE 61; RESP 15; TEMP 98.4
--- NOTE | 2024-04-17 09:04 | P.GSCN ---
History of Present Illness Consult date: 04/17/24 Reason for Consult: Left ureteral calculus Requesting physician: Shane Edmondson History of present illness: The patient is a 68-year-old white female with no prior history of urolithiasis. She was treated for a UTI 2 to 3 weeks ago. For the past week, she has experienced nausea. Yesterday, she developed severe left flank pain and presented to the ER at [facility] for evaluation. CT scan showed mild left hydronephrosis due to a 3 mm left UVJ calculus. Due to intractable symptoms, she was transferred to [facility] for admission. Review of Systems - Constitutional Denies chills, Denies fever - Gastrointestinal Reports nausea, Denies vomiting - Genitourinary Genitourinary: Reports flank pain, Reports kidney stones, Denies dysuria, Denies hematuria Past Medical History Past Medical History: GERD/Reflux, Skin Disorder Additional Past Medical History / Comment(s): SEASONAL ALLERGIES, ECZEMA TO FACE AND ARMS OCCASIONALLY,VARICOSE VEINS, History of Any Multi-Drug Resistant Organisms: None Reported Past Surgical History: Cholecystectomy, Tubal Ligation Additional Past Surgical History / Comment(s): COLONOSCOPY,EGD, " gastric reflux surgery with mesh " Past Anesthesia/Blood Transfusion Reactions: Motion Sickness Additional Past Anesthesia/Blood Transfusion Reaction / Comm: NO HX BLOOD TRANSFUSION. Past Psychological History: Anxiety Smoking Status: Former smoker Past Alcohol Use History: Occasional Additional Past Alcohol Use History / Comment(s): QUIT SMOKING 1989 SMOKED APPROX 10 YRS 1PPD SMOKED 1 1/2 PPD Past Drug Use History: None Reported - Past Family History Mother Family Medical History: No Reported History Additional Family Medical History / Comment(s): YASMEENHEIMER'S Father Additional Family Medical History / Comment(s): throat CA Medications and Allergies Home Medications Medication Instructions Recorded Confirmed Type Chlorthalidone [Hygroton] 25 mg PO DAILY 08/25/19 04/17/24 History Fenofibrate [Lofibra] 160 mg PO DAILY 04/17/24 04/17/24 History busPIRone HCL [Buspar] 7.5 mg PO BID 04/17/24 04/17/24 History Allergies Allergy/AdvReac Type Severity Reaction Status Date / Time dog dander AdvReac Rash/Hives Verified 04/17/24 08:22 grass pollen AdvReac Rash/Hives Verified 04/17/24 08:22 Surgical - Exam Vital Signs Temp Pulse Resp BP Pulse Ox 98.7 F 76 16 138/78 94 L 04/16/24 21:42 04/16/24 21:42 04/16/24 21:42 04/16/24 21:42 04/16/24 21:42 - General well developed, well nourished, no distress - Neck no masses, trachea midline - Respiratory normal respiratory effort - Abdomen Abdomen: soft, non tender, no guarding, no rigid, no rebound - Psychiatric oriented to time, oriented to person, oriented to place, speech is normal, memory intact Results - Labs 04/16/24 21:34 04/16/24 21:34 Abnormal Lab Results - Last 24 Hours (Table) 04/16/24 04/16/24 04/16/24 Range/Units 21:34 21:34 21:58 Neutrophils # 8.5 H (1.3-7.7) k/uL Lymphocytes # 0.9 L (1.0-4.8) k/uL Sodium 134 L (137-145) mmol/L Potassium 3.3 L (3.5-5.1) mmol/L BUN 25 H (7-17) mg/dL Creatinine 1.43 H (0.52-1.04) mg/dL Glucose 123 H (74-99) mg/dL Calcium 10.4 H (8.4-10.2) mg/dL AST 204 H (14-36) U/L ALT 61 H (4-34) U/L Total Protein 6.0 L (6.3-8.2) g/dL Urine Appearance Cloudy H (Clear) Urine Protein Trace H (Negative) Urine RBC 7 H (0-5) /hpf Amorphous Sediment Rare H (None) /hpf Urine Bacteria Rare H (None) /hpf Hyaline Casts 7 H (0-2) /lpf Urine Mucus Few H (None) /hpf Diabetes panel 04/16/24 Range/Units 21:34 Sodium 134 L (137-145) mmol/L Potassium 3.3 L (3.5-5.1) mmol/L Chloride 101 (98-107) mmol/L Carbon Dioxide 22 (22-30) mmol/L BUN 25 H (7-17) mg/dL Creatinine 1.43 H (0.52-1.04) mg/dL Glucose 123 H (74-99) mg/dL Calcium 10.4 H (8.4-10.2) mg/dL AST 204 H (14-36) U/L ALT 61 H (4-34) U/L Alkaline Phosphatase 53 (38-126) U/L Total Protein 6.0 L (6.3-8.2) g/dL Albumin 3.7 (3.5-5.0) g/dL Calcium panel 04/16/24 Range/Units 21:34 Calcium 10.4 H (8.4-10.2) mg/dL Albumin 3.7 (3.5-5.0) g/dL Pituitary panel 04/16/24 Range/Units 21:34 Sodium 134 L (137-145) mmol/L Potassium 3.3 L (3.5-5.1) mmol/L Chloride 101 (98-107) mmol/L Carbon Dioxide 22 (22-30) mmol/L BUN 25 H (7-17) mg/dL Creatinine 1.43 H (0.52-1.04) mg/dL Glucose 123 H (74-99) mg/dL Calcium 10.4 H (8.4-10.2) mg/dL Adrenal panel 04/16/24 Range/Units 21:34 Sodium 134 L (137-145) mmol/L Potassium 3.3 L (3.5-5.1) mmol/L Chloride 101 (98-107) mmol/L Carbon Dioxide 22 (22-30) mmol/L BUN 25 H (7-17) mg/dL Creatinine 1.43 H (0.52-1.04) mg/dL Glucose 123 H (74-99) mg/dL Calcium 10.4 H (8.4-10.2) mg/dL Total Bilirubin 1.0 (0.2-1.3) mg/dL AST 204 H (14-36) U/L ALT 61 H (4-34) U/L Alkaline Phosphatase 53 (38-126) U/L Total Protein 6.0 L (6.3-8.2) g/dL Albumin 3.7 (3.5-5.0) g/dL - Imaging Abdominal x-ray: report reviewed, image reviewed Assessment and Plan (1) Ureterolithiasis Current Visit: Yes Status: Acute Code(s): N20.1 - CALCULUS OF URETER [facility] ED Code(s): 77556850 Plan: I had a lengthy discussion with the patient regarding her ureteral calculus. I explained to her that it is small and located within the distal ureter. Thus, the calculus has a greater than 90% chance of passing. She was offered the options of medical expulsion therapy versus ureteroscopic removal of the calculus. She hopes to avoid surgery. I have prescribed tamsulosin, and her urine will be strained. If she is able to tolerate diet, she could be discharged home with prescriptions for analgesics, antiemetics, and tamsulosin. She was given my card and advised to follow-up with me as an outpatient if indeed she is discharged home. Conversely, if she develops intractable symptoms and fails medical expulsion therapy arrangements will be made for her to undergo ureteroscopic removal of the calculus. Time with Patient: Greater than 30
[2024-04-17] MEDS: TAMSULOSIN 0.4 MG CAP.ER.24H PO SCH (09:38)
--- NOTE | 2024-04-17 23:57 | HP ---
HISTORY AND PHYSICAL CHIEF COMPLAINT: Left loin pain and ureterolithiasis. HISTORY OF PRESENT ILLNESS: This 68-year-old woman with a past history of urolithiasis, was being treated for UTI previously. The patient is complaining of significant pain on the left loin angle and left side of the abdomen. The patient was seen in [facility], which showed left hydronephrosis, mild with left UVJ calculus. The patient was seen by Dr. Coburn, recommended outpatient followup. At this time, the patient is keen on going home. There is no history of any fever, rigors, or chills. PAST MEDICAL HISTORY: GERD and history of UTI. Rest of the history and rest of the chart is also reviewed. HOME MEDICATIONS: BuSpar. Rest of the dose and rest of medications reviewed. ALLERGIES: Dog dander. FAMILY HISTORY: History of throat cancer. SOCIAL HISTORY: Previous history of smoking. REVIEW OF SYSTEMS: A 14-point review is negative except as mentioned. PHYSICAL EXAMINATION: VITAL SIGNS: Pulse 61, blood pressure 117/61, respirations 15. HEENT: Conjunctivae normal. NECK: No jugular venous distention. CARDIOVASCULAR: S1, S2. RESPIRATIONS: Breath sounds diminished at the bases. ABDOMEN: Soft and nontender. LEGS: No edema, no swelling. NERVOUS SYSTEM: Nonfocal. LABORATORY DATA: Reviewed. Creatinine 1.43. ASSESSMENT: 1. Left ureterolithiasis with UVJ stone and left hydronephrosis. 2. Gastroesophageal reflux disease. 3. Cholecystectomy. 4. Anxiety. 5. Multiple medical issues. RECOMMENDATION: This 68-year-old woman presented with multiple complex medical issues. I recommend to continue the current medications, symptomatic treatment, Flomax has been initiated. Dr. Coburn has recommended outpatient followup. I would recommend followup labs with the primary physician and follow up with Dr. Coburn as recommended. Otherwise, the patient is stable. Please refer to the medication reconciliation sheet for list of medications. MMODL / IJN: [id number] /
--- NOTE | 2024-05-06 16:22 | DS ---
DISCHARGE SUMMARY FINAL DIAGNOSES: 1. Left ureterolithiasis with ureterovesical junction stone and left hydronephrosis. 2. Gastroesophageal reflux disease. 3. Multiple medical issues. DISCHARGE DISPOSITION: The patient will be discharged in a stable condition and guarded prognosis. HISTORY OF PRESENT ILLNESS: This is a 68-year-old woman, who was admitted with ureterolithiasis, seen by Urology. Recommended outpatient followup. Please refer to the medication reconciliation sheet for list of medications. MMODL / IJN: [id number] /
== END 2024-04-17 14:33 | disposition home or self-care (01) ==
LOC: EC 19:58 → 6NMEDSUR 22:37
PROVIDERS: ADMIT Hospitalist; ATTEND Hospitalist
DX: N13.2 Hydronephrosis with renal and ureteral calculous obstruction (principal); K21.9 Gastro-esophageal reflux disease without esophagitis; F41.9 Anxiety disorder, unspecified; Z79.899 Other long term (current) drug therapy; Z91.048 Other nonmedicinal substance allergy status; Z90.49 Acquired absence of other specified parts of digestive tract; Z87.440 Personal history of urinary (tract) infections; Z87.891 Personal history of nicotine dependence
CPT/HCPCS: 36415; 74018; 80053; 81001; 83605; 85025; 96361; 96374; 99285